=== PATIENT | female | born 1980 | race Caucasian/White ===

== ENCOUNTER → 2017-11-28 | Outpatient (CLI) | payer OTHER | END | disposition home or self-care (01) | LOC: RADMRIMAIN 20:08 | PROVIDERS: ATTEND Family Medicine | DX: Z53.9 Procedure and treatment not carried out, unspecified reason (principal) ==

== ENCOUNTER → 2017-12-02 | Outpatient (CLI) | payer OTHER ==
--- NOTE | 2017-12-02 16:38 | MR ---
EXAMINATION TYPE: MR lspine/sacrum wo/w con DATE OF EXAM: 12/02/2017 COMPARISON: 08/28/2012 HISTORY: Low back pain / Chronic back pain, incontinence CONTRAST: 0 mL intravenous Gadavist. TECHNIQUE: Multiplanar, multisequence images of the lumbar spine were acquired. FINDINGS: Cord terminates at the L2 level. Interval disc desiccation is present through the lumbar s pine. Disc heights appear preserved. L5-S1: No significant disc bulge or disc herniation. No spinal canal stenosis. No foraminal stenosi s. . L4-L5: No significant disc bulge or disc herniation. No spinal canal stenosis. No foraminal stenosi s. . L3-L4: Mild disc bulging is anterior thecal sac contact. No AP spinal canal stenosis present. Mild fa cet hypertrophy is present. Neural foramen are patent. No spinal canal stenosis. No foraminal steno sis. . L2-L3: No significant disc bulge or disc herniation. No spinal canal stenosis. No foraminal stenosi s. . L1-L2: Very minimal asymmetric bulging of the right paracentral region is anterior thecal sac contact . No stenosis is present. No foraminal stenosis. . T12-L1: No significant disc bulge or disc herniation. No spinal canal stenosis. No foraminal stenos is. Neural foramen are patent.. Images are performed through the sacrum. Sacral canal appears widely patent. Foramen appear patent. S acroiliac joints appear normal. Signal within the osseous structures appear normal. Portion of the co ccyx as visualized appears normal. Following contrast administration imaging is repeated through the lumbar spine. No suspicious enhance ment is evident. Imaging postcontrast through the sacrum and coccyx appears within normal limits. Por tion of the sacral plexus within the [id number] is unremarkable. IMPRESSION: 1. No significant disc herniation or disc bulge is evident. No spinal canal stenosis or neural forami nal stenosis. 2. Sacrum and coccyx likewise appear within normal limits.
== END | disposition home or self-care (01) ==
LOC: RADMRIMAIN 09:58
PROVIDERS: ATTEND Family Medicine
DX: M54.5 Low back pain (principal)
CPT/HCPCS: 72158; 72197; A9581

== ENCOUNTER 2018-10-01 14:35 | Emergency (ER) | payer OTHER ==
[2018-10-01 14:43] VITALS: RESP 18
[2018-10-01] MEDS ORDERED: levETIRAcetam 500 MG TAB PO STA (15:54)
[2018-10-01] MEDS ORDERED: METOCLOPRAMIDE 5 MG/ML 2 ML VIAL IVP STA (15:54)
[2018-10-01] MEDS ORDERED: MORPHINE SULFATE 4 MG/ML SYRINGE IV STA (15:54)
--- NOTE | 2018-10-01 16:01 | ED ---
General Adult HPI - General Chief complaint: Headache Stated complaint: HEADACHE Time Seen by Provider: 10/01/18 15:20 Source: patient, EMS, RN notes reviewed Mode of arrival: EMS Limitations: no limitations - History of Present Illness Initial comments: Patient is a pleasant 37-year-old female presenting to the emergency Department as a transfer from [facility]. Patient states she does have a well-known history of seizures. Patient has been seizure free for the past 6 years secondary to smoking marijuana. Patient states she was recently put on probation and had to discontinue marijuana one week ago. Patient states today she had 3 small seizures. Patient states is her absent seizures. Patient states the first to this lasted a few seconds and the last one lasted up to 3-4 minutes. Patient states she was alert and responsive the entire time. Patient states this was not a generalized tonic-clonic seizure. Patient does have history of both previously. Patient states no seizure medicine previously worked for her however that only when she really remembers was limited all. Patient does complain of generalized headache. Patient states she does chronically get headaches after having seizures and just wants something for pain. Patient was transferred from [facility] for desire of having neurology evaluation. - Related Data Home Medications Medication Instructions Recorded Confirmed ALPRAZolam [Xanax] 0.5 mg PO BID PRN 10/01/18 10/01/18 Escitalopram [Lexapro] 10 mg PO HS 10/01/18 10/01/18 Oxybutynin Chloride 5 mg PO BID 10/01/18 10/01/18 Previous Rx's Medication Instructions Recorded levETIRAcetam [Keppra] 500 mg PO Q12HR #14 tab 10/01/18 Allergies Allergy/AdvReac Type Severity Reaction Status Date / Time Penicillins Allergy Unknown Unknown Verified 10/01/18 15:22 barium iodide [Barium Iodide] Allergy Unknown Verified 10/01/18 15:22 cephalexin monohydrate Allergy Unknown Verified 10/01/18 15:22 [From Keflex] lidocaine Allergy Unknown Verified 10/01/18 15:22 Sulfa (Sulfonamide Allergy Unknown Verified 10/01/18 15:22 Antibiotics) tetanus toxoid, adsorbed Allergy Unknown Verified 10/01/18 15:22 Review of Systems ROS Statement: Those systems with pertinent positive or pertinent negative responses have been documented in the HPI. ROS Other: All systems not noted in ROS Statement are negative. Constitutional: Denies: fever Eyes: Denies: eye pain ENT: Denies: ear pain Respiratory: Denies: cough Cardiovascular: Denies: chest pain Endocrine: Denies: fatigue Gastrointestinal: Denies: abdominal pain Genitourinary: Denies: dysuria Musculoskeletal: Denies: as per HPI Skin: Denies: rash Neurological: Reports: headache Past Medical History Past Medical History: Diabetes Mellitus, Seizure Disorder Additional Past Medical History / Comment(s): MS, back pain DDD HERNIATED DISK History of Any Multi-Drug Resistant Organisms: None Reported Past Surgical History: Adenoidectomy, Section, Cholecystectomy, Orthopedic Surgery, Tonsillectomy, Tubal Ligation Past Psychological History: Depression Smoking Status: Current every day smoker Past Alcohol Use History: None Reported, Occasional Past Drug Use History: Marijuana General Exam Limitations: no limitations General appearance: alert, in no apparent distress Head exam: Present: atraumatic Eye exam: Present: normal appearance, PERRL, EOMI ENT exam: Present: normal oropharynx Neck exam: Present: normal inspection Respiratory exam: Present: normal lung sounds bilaterally Cardiovascular Exam: Present: regular rate, normal rhythm GI/Abdominal exam: Present: soft. Absent: tenderness Extremities exam: Present: normal inspection Neurological exam: Present: alert, CN II-XII intact. Absent: motor sensory deficit Expanded Neurological exam: Present: protecting the airway Speech: Present: fluid speech Cranial nerves: EOM's Intact: Normal, Facial Sensation: Normal Sensory exam: Upper Extremity Light Touch: Normal, Lower Extremity Light Touch: Normal Motor strength exam: RUE: 5, LUE: 5, RLE: 5, LLE: 5 Eye Response: (4) open spontaneously Motor Response: (6) obeys commands Verbal Response: (5) oriented Psychiatric exam: Present: normal affect, normal mood Skin exam: Present: normal color Course Vital Signs 10/01/18 14:37 Temperature 98.5 F Pulse Rate 64 Respiratory 18 Rate Blood Pressure 135/93 O2 Sat by Pulse 96 Oximetry Medical Decision Making - Medical Decision Making Case was discussed with Dr. Reid who did not have a specific opinion as far as admission or discharge however did agree to consult on the patient if she was admitted. He also agreed with Gianna if the patient did not agree to admission. Patient is offered admission several times and made aware that the reason she was transferred here was for admission however refuses this. Patient states she only is here to get medication for her headache. Patient states she arty has an appointment tomorrow with her primary care physician and will set up neurology evaluation again at that time. Patient refuses admission but is agreeable for follow-up. Disposition Clinical Impression: Absence seizure, Headache Disposition: HOME SELF-CARE Condition: Stable Instructions (If sedation given, give patient instructions): Acute Headache (ED), Recurrent Seizures in Adults (ED) Additional Instructions: Please follow-up tomorrow with your primary care physician as planned. Please schedule neurology evaluation as planned. Return for recurrent seizures, confusion, fevers, worsening symptoms or other concerns. Prescriptions: levETIRAcetam [Keppra] 500 mg PO Q12HR #14 tab Is patient prescribed a controlled substance at d/c from ED?: No Referrals: Osvaldo Bruner DO [Primary Care Provider] - 1-2 days Time of Disposition: 16:00
[2018-10-01 16:19] VITALS: BP 108/59; PULSE 70; TEMP 97.4
== END 2018-10-01 16:18 | disposition home or self-care (01) ==
LOC: EC 14:35
DX: G40.802 Other epilepsy, not intractable, without status epilepticus (principal); R51 Headache; F32.9 Major depressive disorder, single episode, unspecified; F17.200 Nicotine dependence, unspecified, uncomplicated; Z53.29 Procedure and treatment not carried out because of patient's decision for other reasons; Z79.899 Other long term (current) drug therapy; Z88.0 Allergy status to penicillin; Z88.8 Allergy status to other drugs, medicaments and biological substances; Z88.1 Allergy status to other antibiotic agents; Z88.4 Allergy status to anesthetic agent; Z88.2 Allergy status to sulfonamides; Z88.7 Allergy status to serum and vaccine
CPT/HCPCS: 99284; 96374; 96375; J2270; J2765

== ENCOUNTER 2019-06-30 23:21 | Emergency (ER) | payer OTHER ==
[2019-06-30 23:33] VITALS: BP 149/81; PULSE 82; RESP 20; TEMP 98.1
--- NOTE | 2019-06-30 23:44 | ED ---
Upper Extremity HPI - General Chief Complaint: Extremity Injury, Upper Stated Complaint: Fall, arm injury Time Seen by Provider: 06/30/19 23:36 Source: patient Mode of arrival: ambulatory Limitations: no limitations - History of Present Illness Initial Comments: Patient is a 38-year-old female presenting to emergency Department with complaints of left shoulder pain after falling 3 days ago. Patient states she slipped going downstairs and her arms went behind her trying to catch her fall when her left arm she caught the stairs and she's been having pain in her left shoulder ever since. Patient states she has tried to take Tylenol and Motrin for her discomfort however the pain has been increasing. Patient denies any previous injuries to her left shoulder. She states she is having some mild numbness and tingling into her left hand. She denies any her head. She has no other complaints from the fall. Upon arrival to the ER, her vital signs are stable. - Related Data Home Medications Medication Instructions Recorded Confirmed ALPRAZolam [Xanax] 0.5 mg PO BID PRN 10/01/18 10/01/18 Escitalopram [Lexapro] 10 mg PO HS 10/01/18 10/01/18 Oxybutynin Chloride 5 mg PO BID 10/01/18 10/01/18 Previous Rx's Medication Instructions Recorded levETIRAcetam [Keppra] 500 mg PO Q12HR #14 tab 10/01/18 Allergies Allergy/AdvReac Type Severity Reaction Status Date / Time Penicillins Allergy Unknown Unknown Verified 06/30/19 23:33 barium iodide [Barium Iodide] Allergy Unknown Verified 06/30/19 23:33 cephalexin monohydrate Allergy Unknown Verified 06/30/19 23:33 [From Keflex] lidocaine Allergy Unknown Verified 06/30/19 23:33 Sulfa (Sulfonamide Allergy Unknown Verified 06/30/19 23:33 Antibiotics) tetanus toxoid, adsorbed Allergy Unknown Verified 06/30/19 23:33 Review of Systems ROS Statement: Those systems with pertinent positive or pertinent negative responses have been documented in the HPI. ROS Other: All systems not noted in ROS Statement are negative. Past Medical History Past Medical History: Diabetes Mellitus, Seizure Disorder Additional Past Medical History / Comment(s): MS, back pain DDD HERNIATED DISK History of Any Multi-Drug Resistant Organisms: None Reported Past Surgical History: Adenoidectomy, Section, Cholecystectomy, Orthopedic Surgery, Tonsillectomy, Tubal Ligation Past Psychological History: Anxiety, Depression Smoking Status: Current every day smoker Past Alcohol Use History: None Reported Past Drug Use History: Marijuana General Exam - General Exam Comments Initial Comments: GENERAL: Well-appearing, well-nourished and in no acute distress. HEAD: Atraumatic, normocephalic. EYES: Pupils equal round and reactive to light, extraocular movements intact, sclera anicteric, conjunctiva are normal. ENT: Moist mucous membranes. NECK: Normal range of motion, supple without lymphadenopathy or JVD. LUNGS: Breath sounds clear to auscultation bilaterally and equal. No wheezes rales or rhonchi. HEART: Regular rate and rhythm without murmurs, rubs or gallops. ABDOMEN: Soft, nontender, normoactive bowel sounds. No guarding, no rebound. No masses appreciated. : Deferred EXTREMITIES: Tenderness to palpation of the posterior and anterior aspects of the left shoul debbie, over rotator cuff ligaments. Mild tenderness over the left trapezius. Patient has decreased range of motion secondary to pain. She is neurovascular intact. No pitting or edema. No clubbing or cyanosis. NEUROLOGICAL: Normal speech, normal gait. PSYCH: Normal mood, normal affect. SKIN: Warm, Dry, normal turgor, no rashes or lesions noted. Limitations: no limitations Course Vital Signs 06/30/19 23:31 Temperature 98.1 F Pulse Rate 82 Respiratory 20 Rate Blood Pressure 149/81 O2 Sat by Pulse 100 Oximetry Medical Decision Making - Medical Decision Making Patient is a 38-year-old female presenting for left shoulder pain 3 days after a fall. She denies any other injuries in this fall. X-rays of the left shoulder revealed no acute fractures or dislocations. I discussed with patient this is most likely a rotator cuff injury. She was given a sling for comfort. She will continue with Tylenol and Motrin as well as ice at home. She will do gentle range of motion and will follow up with orthopedics. Patient is agr eement this plan of care. She is requesting pain medicine before she goes. Patient was given Toradol before discharge. Return parameters were discussed with the patient she verbalized understanding. Disposition Clinical Impression: Strain of left shoulder, Left shoulder pain Disposition: HOME SELF-CARE Condition: Stable Instructions (If sedation given, give patient instructions): Shoulder Sprain (ED) Additional Instructions: Please return to the Emergency Department if symptoms worsen or any other concerns. Follow-up with orthopedics as discussed. May continue with Tylenol or Motrin for discomfort. Is patient prescribed a controlled substance at d/c from ED?: No Referrals: Dorothy Lopez MD [Primary Care Provider] - 1-2 days Zak Ramirez MD [Medical Doctor] - 1-2 days
--- NOTE | 2019-06-30 23:59 | XR ---
EXAMINATION TYPE: XR shoulder complete LT DATE OF EXAM: 06/30/2019 COMPARISON: NONE HISTORY: Pain TECHNIQUE: Shoulder examined in 3 FINDINGS: The humeral head articulates with the glenoid. The acromio-clavicular junction is normal. No acute fractures or dislocations are evident. A follow up study can be performed 7-10 days from acute trauma for continued pain. IMPRESSION: 1. Normal three-view left Shoulder
[2019-07-01] MEDS ORDERED: KETOROLAC 60 MG/2 ML VIAL IM STA (00:18)
== END 2019-07-01 00:57 | disposition home or self-care (01) ==
LOC: EC 23:21
DX: S46.912A Strain of unspecified muscle, fascia and tendon at shoulder and upper arm level, left arm, initial encounter (principal); E11.9 Type 2 diabetes mellitus without complications; F41.9 Anxiety disorder, unspecified; F32.9 Major depressive disorder, single episode, unspecified; F17.200 Nicotine dependence, unspecified, uncomplicated; Z79.899 Other long term (current) drug therapy; Z88.0 Allergy status to penicillin; Z88.8 Allergy status to other drugs, medicaments and biological substances; Z88.1 Allergy status to other antibiotic agents; Z88.4 Allergy status to anesthetic agent; Z88.2 Allergy status to sulfonamides; Z88.7 Allergy status to serum and vaccine; W10.9XXA Fall (on) (from) unspecified stairs and steps, initial encounter
CPT/HCPCS: 73030; 99283; 96372; J1885

== ENCOUNTER 2019-11-10 21:40 | Emergency (ER) | payer OTHER ==
--- NOTE | 2019-11-10 22:00 | ED ---
SOB HPI - General Chief Complaint: Shortness of Breath Stated Complaint: SOB Time Seen by Provider: 11/10/19 21:55 Source: patient Mode of arrival: wheelchair Limitations: no limitations - History of Present Illness Initial Comments: This patient is a 39-year-old woman who presents to be evaluated for constellation of symptoms that all began between 2-3 weeks ago. She states that the onset was of some congestion followed by a nonproductive cough. Patient has a little bit of dyspnea with exertion. She also has been having some body aches and headache. In addition patient has had some fever that has been intermittent. MD Complaint: shortness of breath, cough -: week(s) Consistency: constant Improves With: nothing Worsens With: nothing Associated Symptoms: fever, cough, other (Headache) Treatments Prior to Arrival: none - Related Data Home Medications Medication Instructions Recorded Confirmed Acetaminophen Tab [Tylenol Tab] 1,000 mg PO Q6H PRN 11/10/19 11/10/19 Previous Rx's Medication Instructions Recorded Albuterol Inhaler [Ventolin Hfa 2 puff INHALATION Q4HR PRN #1 11/11/19 Inhaler] inhaler predniSONE [Deltasone] 20 mg PO BID #8 tab 11/11/19 Allergies Allergy/AdvReac Type Severity Reaction Status Date / Time Penicillins Allergy Unknown Dyspnea Verified 11/10/19 23:36 cephalexin monohydrate Allergy Unknown Verified 11/10/19 23:36 [From Keflex] Childhood lidocaine Allergy Rash/Hives/Shortness Verified 11/10/19 23:36 of Breath Sulfa (Sulfonamide Allergy Unknown Verified 11/10/19 23:36 Antibiotics) Childhood tetanus toxoid, adsorbed Allergy Unknown Verified 11/10/19 23:36 barium iodide [Barium Iodide] AdvReac Nausea & Verified 11/10/19 23:36 Vomiting Review of Systems ROS Statement: Those systems with pertinent positive or pertinent negative responses have been documented in the HPI. ROS Other: All systems not noted in ROS Statement are negative. Constitutional: Reports: fever. Denies: weakness Eyes: Denies: vision change ENT: Reports: congestion Respiratory: Reports: cough, dyspnea. Denies: wheezes, hemoptysis Cardiovascular: Reports: chest pain, dyspnea on exertion. Denies: palpitations, orthopnea, edema, syncope Gastrointestinal: Denies: abdominal pain, nausea, vomiting Genitourinary: Denies: dysuria, hematuria Musculoskeletal: Reports: myalgia. Denies: back pain Skin: Denies: rash Neurological: Reports: headache. Denies: weakness, numbness, confusion Past Medical History Past Medical History: Diabetes Mellitus, Seizure Disorder Additional Past Medical History / Comment(s): MS, back pain DDD HERNIATED DISK History of Any Multi-Drug Resistant Organisms: None Reported Past Surgical History: Adenoidectomy, Section, Cholecystectomy, Or thopedic Surgery, Tonsillectomy, Tubal Ligation Past Psychological History: Anxiety, Depression Smoking Status: Current every day smoker Past Alcohol Use History: None Reported Past Drug Use History: Marijuana General Exam Limitations: no limitations General appearance: alert, in no apparent distress Head exam: Present: atraumatic, normocephalic Eye exam: Present: normal appearance, PERRL, EOMI. Absent: scleral icterus, conjunctival injection ENT exam: Present: normal oropharynx Neck exam: Present: full ROM. Absent: tenderness, meningismus Respiratory exam: Present: wheezes. Absent: respiratory distress, rales, rhonchi, stridor Cardiovascular Exam: Present: regular rate, normal rhythm, normal heart sounds. Absent: systolic murmur, diastolic murmur, rubs, gallop GI/Abdominal exam: Present: soft. Absent: distended, tenderness, guarding, rebound, rigid, mass Extremities exam: Present: normal inspection, normal capillary refill. Absent: pedal edema, calf tenderness Back exam: Present: normal inspection. Absent: CVA tenderness (R), CVA tenderness (L) Neurological exam: Present: alert Skin exam: Present: warm, dry, intact, normal color. Absent: rash Course Vital Signs 11/10/19 11/10/19 21:41 23:24 Temperature 97.9 F 97.8 F Pulse Rate 93 74 Respiratory 24 20 Rate Blood Pressure 123/79 129/83 O2 Sat by Pulse 98 99 Oximetry Medical Decision Making - Lab Data Result diagrams: 11/10/19 22:34 11/10/19 22:34 Lab Results 11/10/19 11/10/19 11/10/19 Range/Units 22:34 22:34 22:34 WBC 5.5 (3.8-10.6) k/uL RBC 4.59 (3.80-5.40) m/uL Hgb 13.9 (11.4-16.0) gm/dL Hct 41.6 (34.0-46.0) % MCV 90.4 (80.0-100.0) fL MCH 30.2 (25.0-35.0) pg MCHC 33.4 (31.0-37.0) g/dL RDW 13.1 (11.5-15.5) % Plt Count 230 (150-450) k/uL Neutrophils % 64 % Lymphocytes % 25 % Monocytes % 6 % Eosinophils % 2 % Basophils % 1 % Neutrophils # 3.5 (1.3-7.7) k/uL Lymphocytes # 1.4 (1.0-4.8) k/uL Monocytes # 0.3 (0-1.0) k/uL Eosinophils # 0.1 (0-0.7) k/uL Basophils # 0.0 (0-0.2) k/uL PT 9.7 (9.0-12.0) sec INR 0.9 (<1.2) APTT 25.6 (22.0-30.0) sec D-Dimer 0.38 (<0.60) mg/L FEU Sodium 135 L (137-145) mmol/L Potassium 3.8 (3.5-5.1) mmol/L Chloride 104 (98-107) mmol/L Carbon Dioxide 22 (22-30) mmol/L Anion Gap 9 mmol/L BUN 10 (7-17) mg/dL Creatinine 0.63 (0.52-1.04) mg/dL Est GFR (CKD-EPI)AfAm >90 (>60 ml/min/1.73 sqM) Est GFR (CKD-EPI)NonAf >90 (>60 ml/min/1.73 sqM) Glucose 120 H (74-99) mg/dL Calcium 9.0 (8.4-10.2) mg/dL Total Bilirubin 0.3 (0.2-1.3) mg/dL AST 29 (14-36) U/L ALT 21 (4-34) U/L Alkaline Phosphatase 65 (38-126) U/L Troponin I (0.000-0.034) ng/mL NT-Pro-B Natriuret Pep pg/mL Total Protein 6.7 (6.3-8.2) g/dL Albumin 4.1 (3.5-5.0) g/dL 11/10/19 11/10/19 Range/Units 22:34 22:34 WBC (3.8-10.6) k/uL RBC (3.80-5.40) m/uL Hgb (11.4-16.0) gm/dL Hct (34.0-46.0) % MCV (80.0-100.0) fL MCH (25.0-35.0) pg MCHC (31.0-37.0) g/dL RDW (11.5-15.5) % Plt Count (150-450) k/uL Neutrophils % % Lymphocytes % % Monocytes % % Eosinophils % % Basophils % % Neutrophils # (1.3-7.7) k/uL Lymphocytes # (1.0-4.8) k/uL Monocytes # (0-1.0) k/uL Eosinophils # (0-0.7) k/uL Basophils # (0-0.2) k/uL PT (9.0-12.0) sec INR (<1.2) APTT (22.0-30.0) sec D-Dimer (<0.60) mg/L FEU Sodium (137-145) mmol/L Potassium (3.5-5.1) mmol/L Chloride (98-107) mmol/L Carbon Dioxide (22-30) mmol/L Anion Gap mmol/L BUN (7-17) mg/dL Creatinine (0.52-1.04) mg/dL Est GFR (CKD-EPI)AfAm (>60 ml/min/1.73 sqM) Est GFR (CKD-EPI)NonAf (>60 ml/min/1.73 sqM) Glucose (74-99) mg/dL Calcium (8.4-10.2) mg/dL Total Bilirubin (0.2-1.3) mg/dL AST (14-36) U/L ALT (4-34) U/L Alkaline Phosphatase (38-126) U/L Troponin I <0.012 (0.000-0.034) ng/mL NT-Pro-B Natriuret Pep 411 pg/mL Total Protein (6.3-8.2) g/dL Albumin (3.5-5.0) g/dL - EKG Data -: EKG Interpreted by Me EKG shows normal: sinus rhythm, axis (Normal), intervals (Normal), QRS complexes (Normal), ST-T waves (Normal) Rate: normal (Rate 95 bpm) Disposition Clinical Impression: Viral syndrome, Bronchitis Disposition: HOME SELF-CARE Condition: Good Instructions (If sedation given, give patient instructions): Acute Bronchitis (ED) Prescriptions: predniSONE [Deltasone] 20 mg PO BID #8 tab Albuterol Inhaler [Ventolin Hfa Inhaler] 2 puff INHALATION Q4HR PRN #1 inhaler PRN Reason: Wheezing Is patient prescribed a controlled substance at d/c from ED?: No Referrals: None,Stated [Primary Care Provider] - 1-2 days
[2019-11-10] MEDS ORDERED: IBUPROFEN 400 MG TAB PO STA (22:33)
--- NOTE | 2019-11-10 22:49 | XR ---
EXAMINATION TYPE: XR chest 2V DATE OF EXAM: 11/10/2019 COMPARISON: 08/23/2015 HISTORY: Chest pain TECHNIQUE: FINDINGS: Heart and mediastinum are normal. Lungs are clear. There is slight blunting of left costoph renic angle. Bony thorax appears normal. IMPRESSION: There is mild pleural scarring at the lateral left lung base unchanged. No acute lung dis ease. Normal heart.
[2019-11-10 22:51] LABS: Basophils % (A) 1 %; Eosinophils # (A) 0.1 k/uL (0-0.7); Eosinophils % (A) 2 %; HCT 41.6 % (34.0-46.0); HGB 13.9 gm/dL (11.4-16.0); Lymphocytes # (A) 1.4 k/uL (1.0-4.8); Lymphocytes % (A) 25 %; MCH 30.2 pg (25.0-35.0); MCHC 33.4 g/dL (31.0-37.0); MCV 90.4 fL (80.0-100.0); Mean Platelet Volume 7.5; Monocytes # (A) 0.3 k/uL (0-1.0); Monocytes % (A) 6 %; Neutrophils # (A) 3.5 k/uL (1.3-7.7); Neutrophils % (A) 64 %; Platelet Count 230 k/uL (150-450); RBC 4.59 m/uL (3.80-5.40); RDW 13.1 % (11.5-15.5); WBC 5.5 k/uL (3.8-10.6)
[2019-11-10 23:05] LABS: ALT 21 U/L (4-34); AST 29 U/L (14-36); African American GFR (CKD) >90 (>60 ml/min/1.73 sqM); Albumin 4.1 g/dL (3.5-5.0); Alkaline Phosphatase 65 U/L (38-126); Anion Gap 9 mmol/L; Blood Urea Nitrogen 10 mg/dL (7-17); Carbon Dioxide 22 mmol/L (22-30); Chloride 104 mmol/L (98-107); Glucose 120 mg/dL (74-99); Non-African American GFR(CKD) >90 (>60 ml/min/1.73 sqM); Potassium 3.8 mmol/L (3.5-5.1); Sodium 135 mmol/L (137-145); Total Bilirubin 0.3 mg/dL (0.2-1.3); Total Protein 6.7 g/dL (6.3-8.2)
[2019-11-10 23:50] LABS: D-Dimer 0.38 mg/L FEU (<0.60); INR 0.9 (<1.2); Partial Thromboplastin Time 25.6 sec (22.0-30.0); Prothrombin Time 9.7 sec (9.0-12.0)
[2019-11-11] MEDS ORDERED: predniSONE 20 MG TAB PO STA (00:40)
[2019-11-11] MEDS ORDERED: ACET/COD 300 MG/30 MG STARTER PACK 6 TAB BTL PO STA (00:47)
[2019-11-11 01:18] VITALS: BP 115/84; PULSE 75; RESP 19; TEMP 97.6
== END 2019-11-11 01:19 | disposition home or self-care (01) ==
LOC: EC 21:40
DX: J40 Bronchitis, not specified as acute or chronic (principal); B34.9 Viral infection, unspecified; M54.9 Dorsalgia, unspecified; F17.200 Nicotine dependence, unspecified, uncomplicated; Z88.0 Allergy status to penicillin; Z88.2 Allergy status to sulfonamides; Z88.1 Allergy status to other antibiotic agents; Z88.4 Allergy status to anesthetic agent; Z91.09 Other allergy status, other than to drugs and biological substances; Z20.828 Contact with and (suspected) exposure to other viral communicable diseases
CPT/HCPCS: 36415; 93005; 85379; 83880; 80053; 84484; 85025; 85610; 85730; 71046; 99285; U0003; J7512

== ENCOUNTER 2020-03-22 12:30 | Emergency (ER) | payer OTHER ==
[2020-03-22 12:34] VITALS: TEMP 98
[2020-03-22 13:24] LABS: Basophils % (A) 0 %; Eosinophils # (A) 0.2 k/uL (0-0.7); Eosinophils % (A) 3 %; HCT 43.1 % (34.0-46.0); HGB 14.2 gm/dL (11.4-16.0); Lymphocytes # (A) 1.3 k/uL (1.0-4.8); Lymphocytes % (A) 22 %; MCH 30.4 pg (25.0-35.0); MCV 92.1 fL (80.0-100.0); Mean Platelet Volume 7.4; Monocytes # (A) 0.3 k/uL (0-1.0); Monocytes % (A) 5 %; Neutrophils # (A) 3.9 k/uL (1.3-7.7); Neutrophils % (A) 68 %; Platelet Count 228 k/uL (150-450); RBC 4.68 m/uL (3.80-5.40); RDW 13.1 % (11.5-15.5); WBC 5.8 k/uL (3.8-10.6)
--- NOTE | 2020-03-22 13:28 | XR ---
EXAMINATION TYPE: XR chest 1V portable DATE OF EXAM: 03/22/2020 COMPARISON: Chest x-ray 11/10/2019 HISTORY: Shortness of breath and chest pain, suspected Covid 19 pneumonia TECHNIQUE: Single frontal view of the chest is obtained. FINDINGS: There is no focal air space opacity, pleural effusion, or pneumothorax seen. The cardiac silhouette size is within normal limits. Lateralization of the left hemidiaphragm is stable. There is eventration of the right hemidiaphragm. The osseous structures are intact. IMPRESSION: No acute process.
[2020-03-22 13:38] VITALS: RESP 18
[2020-03-22 13:43] LABS: Potassium 4.2 mmol/L (3.5-5.1)
[2020-03-22 13:46] LABS: ALT 16 U/L (4-34); AST 25 U/L (14-36); African American GFR (CKD) >90 (>60 ml/min/1.73 sqM); Albumin 4.3 g/dL (3.5-5.0); Alkaline Phosphatase 72 U/L (38-126); Anion Gap 8 mmol/L; Blood Urea Nitrogen 10 mg/dL (7-17); C Reactive Protein <5.0 mg/L (<10.0); Calcium 9.3 mg/dL (8.4-10.2); Carbon Dioxide 21 mmol/L (22-30); Chloride 106 mmol/L (98-107); Glucose 147 mg/dL (74-99); LDH 376 U/L (313-618); Non-African American GFR(CKD) >90 (>60 ml/min/1.73 sqM); Sodium 135 mmol/L (137-145); Total Bilirubin 0.4 mg/dL (0.2-1.3); Total Protein 7.3 g/dL (6.3-8.2)
[2020-03-22] MEDS ORDERED: SODIUM CHLORIDE 0.9% 500 ML 500 ML IV ONE (14:01)
--- NOTE | 2020-03-22 14:01 | ED ---
SOB HPI - General Source: patient Mode of arrival: ambulatory Limitations: no limitations <Isabela Mendiola - Last Filed: 03/22/20 14:09> <Torrie Rodriguez - Last Filed: 03/22/20 21:11> - General Chief Complaint: Shortness of Breath Stated Complaint: SOB Time Seen by Provider: 03/22/20 12:35 - History of Present Illness Initial Comments: 39-year-old female with DM and MS presents today for chief complaint of fevers cough congestion at times shortness of breath and chest discomfort. Patient states that she was recently exposed to Covid 19 she states she developed fevers on a [place] and has been having shortness of breath and at times discomfort in the chest with coughing. Patient denies current shortness of breath or chest discomfort. She denies pressure jaw pain or arm paiin.. Patient does endorse some nausea. She denies vomiting diarrhea. Patient denies leg swelling, hemoptysis. Patient states she is concerned she is and was told to come to the emergency department by her primary care provider for evaluation. Patient does not appear toxic on arrival she is saturating well on room air. In no respiratory distress. (Isabela Mendiola) - Related Data Home Medications Medication Instructions Recorded Confirmed Albuterol Inhaler [Ventolin Hfa 2 puff INHALATION RT-Q6H PRN 03/22/20 03/22/20 Inhaler] Escitalopram [Lexapro] 10 mg PO HS 03/22/20 03/22/20 Fluticasone/Salmeterol [Advair 1 puff INHALATION RT-HS 03/22/20 03/22/20 250-50 Diskus] Oxybutynin Chloride [Ditropan] 5 mg PO BID 03/22/20 03/22/20 Allergies Allergy/AdvReac Type Severity Reaction Status Date / Time Penicillins Allergy Unknown Dyspnea Verified 03/22/20 13:11 cephalexin monohydrate Allergy Unknown Verified 03/22/20 13:11 [From Keflex] Childhood lidocaine Allergy Rash/Hives/Shortness Verified 03/22/20 13:11 of Breath Sulfa (Sulfonamide Allergy Unknown Verified 03/22/20 13:11 Antibiotics) Childhood tetanus toxoid, adsorbed Allergy Unknown Verified 03/22/20 13:11 tomato Allergy Unknown Verified 03/22/20 13:11 barium iodide [Barium Iodide] AdvReac Nausea & Verified 03/22/20 13:11 Vomiting Review of Systems ROS Other: All systems not noted in ROS Statement are negative. <Isabela Mendiola - Last Filed: 03/22/20 14:09> ROS Other: All systems not noted in ROS Statement are negative. <JenniferTorrie Reginaldo - Last Filed: 03/22/20 21:11> ROS Statement: Those systems with pertinent positive or pertinent negative responses have been documented in the HPI. Past Medical History Past Medical History: Diabetes Mellitus, Seizure Disorder Additional Past Medical History / Comment(s): MS, back pain DDD HERNIATED DISK History of Any Multi-Drug Resistant Organisms: None Reported Past Surgical History: Adenoidectomy, Section, Cholecystectomy, Orthopedic Surgery, Tonsillectomy, Tubal Ligation Past Psychological History: Anxiety, Depression Smoking Status: Current every day smoker Past Alcohol Use History: None Reported Past Drug Use History: Marijuana <Isabela Mendiola - Last Filed: 03/22/20 14:09> General Exam Limitations: no limitations <Isabela Mendiola - Last Filed: 03/22/20 14:09> - General Exam Comments Initial Comments: General: The patient is awake and alert, in no distress Eye: Pupils are equal, round and reactive to light, extra-ocular movements are intact. No nystagmus. There is normal conjunctiva bilaterally. No signs of icterus. Ears, nose, mouth and throat: There are moist mucous membranes and no oral lesions. Neck: The neck is supple, there is no tenderness or JVD. Cardiovascular: There is a regular rate and rhythm. No murmur, rub or gallop is appreciated. Respiratory: Lungs are clear to auscultation, respirations are non-labored, breath sounds are equal. No wheezes, stridor, rales, or rhonchi. Dry cough Musculoskeletal: Normal ROM, no tenderness. Strength 5/5. Sensation intact. Radial pulses equal bilaterally 2+. Neurological: A&O x 3. CN II-XII intact, There are no obvious motor or sensory deficits. Coordination appears grossly intact. Speech is normal. Skin: Skin is warm and dry and no rashes or lesions are noted. No LE edema. No calf tenderness. Psychiatric: Cooperative, appropriate mood & affect, normal judgment. (Isabela Mendiola) Course <Isabela Mendiola - Last Filed: 03/22/20 14:09> <Torrie Rodriguez - Last Filed: 03/22/20 21:11> Vital Signs 03/22/20 03/22/20 03/22/20 12:31 13:36 15:51 Temperature 98.0 F Pulse Rate 111 H 88 82 Respiratory 22 18 18 Rate Blood Pressure 145/99 133/88 125/88 O2 Sat by Pulse 100 100 100 Oximetry - Reevaluation(s) Reevaluation #1: signed care out to Torrie rodriguez PA-C pending troponin and D-dimer and ultimate disposition. 03/22/20 14:09 (Isabela Mendiola) Patient was signed out to nc and by Isabela Mendiola PA-C at 14:00. She was reassessed, vital signs remained stable. Awaiting troponin and d-dimer results. 03/22/20 15:00. (Torrie Rodriguez) Medical Decision Making - Lab Data Result diagrams: 03/22/20 13:04 03/22/20 13:04 <Isabela Mendiola - Last Filed: 03/22/20 14:09> - Lab Data Result diagrams: 03/22/20 13:04 03/22/20 13:04 <Torrie Rodriguez - Last Filed: 03/22/20 21:11> - Medical Decision Making Patient is a 39-year-old female here with recent cold exposure presenting with shortness of breath. Patient was slightly tachycardia upon arrival, afebrile. Her exam showed no acute findings, EKG was normal. Chest x-ray also is normal. Labs shows normal white count, d-dimer is normal, lactic acid was slightly elevated at 2.4, most likely from dehydration. CRP is less than 5, troponin is normal, rapid Covid is not detected. Patient was given fluids for dehydration, I did discuss these findings with the patient. Patient's vital signs remained stable. I discussed with her this is most likely viral in nature. Recommend following up with her regular doctor. She is in agreement with this plan of care and is stable for discharge. Return parameters were discussed with the patient and she verbalized understanding. Case discussed with Dr. Chang. (Torrie Rodriguez) - Lab Data Lab Results 03/22/20 03/22/20 03/22/20 Range/Units 13:04 13:04 13:04 WBC 5.8 (3.8-10.6) k/uL RBC 4.68 (3.80-5.40) m/uL Hgb 14.2 (11.4-16.0) gm/dL Hct 43.1 (34.0-46.0) % MCV 92.1 (80.0-100.0) fL MCH 30.4 (25.0-35.0) pg MCHC 33.0 (31.0-37.0) g/dL RDW 13.1 (11.5-15.5) % Plt Count 228 (150-450) k/uL MPV 7.4 Neutrophils % 68 % Lymphocytes % 22 % Monocytes % 5 % Eosinophils % 3 % Basophils % 0 % Neutrophils # 3.9 (1.3-7.7) k/uL Lymphocytes # 1.3 (1.0-4.8) k/uL Monocytes # 0.3 (0-1.0) k/uL Eosinophils # 0.2 (0-0.7) k/uL Basophils # 0.0 (0-0.2) k/uL PT 9.7 (9.0-12.0) sec INR 0.9 (<1.2) APTT 24.1 (22.0-30.0) sec D-Dimer 0.25 (<0.60) mg/L FEU Sodium 135 L (137-145) mmol/L Potassium 4.2 (3.5-5.1) mmol/L Chloride 106 (98-107) mmol/L Carbon Dioxide 21 L (22-30) mmol/L Anion Gap 8 mmol/L BUN 10 (7-17) mg/dL Creatinine 0.60 (0.52-1.04) mg/dL Est GFR (CKD-EPI)AfAm >90 (>60 ml/min/1.73 sqM) Est GFR (CKD-EPI)NonAf >90 (>60 ml/min/1.73 sqM) Glucose 147 H (74-99) mg/dL Lactic Ac Sepsis Rflx Plasma Lactic Acid Jerry (0.7-2.0) mmol/L Calcium 9.3 (8.4-10.2) mg/dL Magnesium 2.0 (1.6-2.3) mg/dL Ferritin 39.2 (10.0-291.0) ng/mL Total Bilirubin 0.4 (0.2-1.3) mg/dL AST 25 (14-36) U/L ALT 16 (4-34) U/L Alkaline Phosphatase 72 (38-126) U/L Lactate Dehydrogenase 376 (313-618) U/L Troponin I (0.000-0.034) ng/mL C-Reactive Protein <5.0 (<10.0) mg/L Total Protein 7.3 (6.3-8.2) g/dL Albumin 4.3 (3.5-5.0) g/dL Influenza Type A (PCR) (Not Detectd) Influenza Type B (PCR) (Not Detectd) RSV (PCR) (Not Detectd) SARS-CoV-2 (PCR) (Not Detectd) 03/22/20 03/22/20 03/22/20 Range/Units 13:04 13:04 14:00 WBC (3.8-10.6) k/uL RBC (3.80-5.40) m/uL Hgb (11.4-16.0) gm/dL Hct (34.0-46.0) % MCV (80.0-100.0) fL MCH (25.0-35.0) pg MCHC (31.0-37.0) g/dL RDW (11.5-15.5) % Plt Count (150-450) k/uL MPV Neutrophils % % Lymphocytes % % Monocytes % % Eosinophils % % Basophils % % Neutrophils # (1.3-7.7) k/uL Lymphocytes # (1.0-4.8) k/uL Monocytes # (0-1.0) k/uL Eosinophils # (0-0.7) k/uL Basophils # (0-0.2) k/uL PT (9.0-12.0) sec INR (<1.2) APTT (22.0-30.0) sec D-Dimer (<0.60) mg/L FEU Sodium (137-145) mmol/L Potassium (3.5-5.1) mmol/L Chloride (98-107) mmol/L Carbon Dioxide (22-30) mmol/L Anion Gap mmol/L BUN (7-17) mg/dL Creatinine (0.52-1.04) mg/dL Est GFR (CKD-EPI)AfAm (>60 ml/min/1.73 sqM) Est GFR (CKD-EPI)NonAf (>60 ml/min/1.73 sqM) Glucose (74-99) mg/dL Lactic Ac Sepsis Rflx Y Plasma Lactic Acid Jerry 2.4 H* (0.7-2.0) mmol/L Calcium (8.4-10.2) mg/dL Magnesium (1.6-2.3) mg/dL Ferritin (10.0-291.0) ng/mL Total Bilirubin (0.2-1.3) mg/dL AST (14-36) U/L ALT (4-34) U/L Alkaline Phosphatase (38-126) U/L Lactate Dehydrogenase (313-618) U/L Troponin I (0.000-0.034) ng/mL C-Reactive Protein (<10.0) mg/L Total Protein (6.3-8.2) g/dL Albumin (3.5-5.0) g/dL Influenza Type A (PCR) Not Detected (Not Detectd) Influenza Type B (PCR) Not Detected (Not Detectd) RSV (PCR) Not Detected (Not Detectd) SARS-CoV-2 (PCR) Not Detected (Not Detectd) 03/22/20 Range/Units 14:41 WBC (3.8-10.6) k/uL RBC (3.80-5.40) m/uL Hgb (11.4-16.0) gm/dL Hct (34.0-46.0) % MCV (80.0-100.0) fL MCH (25.0-35.0) pg MCHC (31.0-37.0) g/dL RDW (11.5-15.5) % Plt Count (150-450) k/uL MPV Neutrophils % % Lymphocytes % % Monocytes % % Eosinophils % % Basophils % % Neutrophils # (1.3-7.7) k/uL Lymphocytes # (1.0-4.8) k/uL Monocytes # (0-1.0) k/uL Eosinophils # (0-0.7) k/uL Basophils # (0-0.2) k/uL PT (9.0-12.0) sec INR (<1.2) APTT (22.0-30.0) sec D-Dimer (<0.60) mg/L FEU Sodium (137-145) mmol/L Potassium (3.5-5.1) mmol/L Chloride (98-107) mmol/L Carbon Dioxide (22-30) mmol/L Anion Gap mmol/L BUN (7-17) mg/dL Creatinine (0.52-1.04) mg/dL Est GFR (CKD-EPI)AfAm (>60 ml/min/1.73 sqM) Est GFR (CKD-EPI)NonAf (>60 ml/min/1.73 sqM) Glucose (74-99) mg/dL Lactic Ac Sepsis Rflx Plasma Lactic Acid Jerry (0.7-2.0) mmol/L Calcium (8.4-10.2) mg/dL Magnesium (1.6-2.3) mg/dL Ferritin (10.0-291.0) ng/mL Total Bilirubin (0.2-1.3) mg/dL AST (14-36) U/L ALT (4-34) U/L Alkaline Phosphatase (38-126) U/L Lactate Dehydrogenase (313-618) U/L Troponin I <0.012 (0.000-0.034) ng/mL C-Reactive Protein (<10.0) mg/L Total Protein (6.3-8.2) g/dL Albumin (3.5-5.0) g/dL Influenza Type A (PCR) (Not Detectd) Influenza Type B (PCR) (Not Detectd) RSV (PCR) (Not Detectd) SARS-CoV-2 (PCR) (Not Detectd) - EKG Data EKG Comments: Normal sinus rhythm, normal ECG. No signs of acute process. Ventricular rate 80, OR interval 118, QTC 372. (Torrie Rodriguez) Disposition <Isabela Mendiola - Last Filed: 03/22/20 14:09> Is patient prescribed a controlled substance at d/c from ED?: No Time of Disposition: 15:58 <Torrie Rodriguez - Last Filed: 03/22/20 21:11> Clinical Impression: Shortness of breath, Viral illness Disposition: HOME SELF-CARE Condition: Stable Instructions (If sedation given, give patient instructions): Viral Syndrome (ED) Additional Instructions: Please return to the Emergency Department if symptoms worsen or any other concerns. Workup today including Covid swab were negative. Mild dehydration. Recommended continuing to increase water intake. Follow-up with your regular PCP. Referrals: Melchor Macdonald MD [Primary Care Provider] - 1-2 days
[2020-03-22 14:22] LABS: D-Dimer 0.25 mg/L FEU (<0.60); INR 0.9 (<1.2); Partial Thromboplastin Time 24.1 sec (22.0-30.0); Prothrombin Time 9.7 sec (9.0-12.0)
[2020-03-22 15:52] VITALS: BP 125/88; PULSE 82
[2020-03-22 20:22] LABS: Ferritin 39.2 ng/mL (10.0-291.0)
== END 2020-03-22 16:03 | disposition home or self-care (01) ==
LOC: EC 12:30
DX: B34.9 Viral infection, unspecified (principal); R74.02 Elevation of levels of lactic acid dehydrogenase [LDH]; F17.200 Nicotine dependence, unspecified, uncomplicated; F41.9 Anxiety disorder, unspecified; F32.9 Major depressive disorder, single episode, unspecified; G40.909 Epilepsy, unspecified, not intractable, without status epilepticus; G35 Multiple sclerosis; Z79.899 Other long term (current) drug therapy; Z20.828 Contact with and (suspected) exposure to other viral communicable diseases; Z88.8 Allergy status to other drugs, medicaments and biological substances; Z88.7 Allergy status to serum and vaccine; Z88.2 Allergy status to sulfonamides; Z88.1 Allergy status to other antibiotic agents; Z88.0 Allergy status to penicillin
CPT/HCPCS: 36415; 71045; 80053; 82728; 83605; 83615; 83735; 84145; 84484; 85025; 85379; 85610; 85730; 86140; 87636; 93005; 96360; 96361; 99285

== ENCOUNTER 2020-12-13 21:47 | Emergency (ER) | payer OTHER ==
[2020-12-13 22:23] VITALS: TEMP 98
[2020-12-13] MEDS ORDERED: SODIUM CHLORIDE 0.9% 500 ML 500 ML IV STA (22:50)
[2020-12-13] MEDS ORDERED: MORPHINE SULFATE 4 MG/ML SYRINGE IV STA (22:50)
--- NOTE | 2020-12-13 22:53 | ED ---
Abdominal Pain HPI - General Chief Complaint: Vaginal Bleeding Stated Complaint: Vaginal Bleeding Time Seen by Provider: 12/13/20 22:38 Source: patient Mode of arrival: ambulatory Limitations: no limitations - History of Present Illness MD Complaint: abdominal pain -: days(s) Location: RLQ, suprapubic Radiation: none Migration to: no migration Severity: severe Quality: cramping, aching Consistency: constant Improves With: nothing Worsens With: nothing - Related Data LMP (females 10-50): last week Patient : No Home Medications Medication Instructions Recorded Confirmed Oxybutynin Chloride [Ditropan] 5 mg PO BID 03/22/20 12/13/20 Escitalopram [Lexapro] 20 mg PO DAILY 12/13/20 12/13/20 Meclizine HCl 25 mg PO TID PRN 12/13/20 12/13/20 Previous Rx's Medication Instructions Recorded Naproxen 250 mg PO BID #20 tablet 12/14/20 Allergies Allergy/AdvReac Type Severity Reaction Status Date / Time Penicillins Allergy Unknown Dyspnea Verified 12/13/20 23:42 cephalexin monohydrate Allergy Unknown Verified 12/13/20 23:42 [From Keflex] Childhood lidocaine Allergy Rash/Hives/Shortness Verified 12/13/20 23:42 of Breath Sulfa (Sulfonamide Allergy Unknown Verified 12/13/20 23:42 Antibiotics) Childhood tetanus toxoid, adsorbed Allergy Unknown Verified 12/13/20 23:42 tomato Allergy Unknown Verified 12/13/20 23:42 barium iodide [Barium Iodide] AdvReac Nausea & Verified 12/13/20 23:42 Vomiting Review of Systems ROS Statement: Those systems with pertinent positive or pertinent negative responses have been documented in the HPI. ROS Other: All systems not noted in ROS Statement are negative. Constitutional: Denies: fever, chills Respiratory: Denies: cough, dyspnea Cardiovascular: Denies: chest pain, palpitations Gastrointestinal: Reports: as per HPI, abdominal pain. Denies: nausea, vomiting, diarrhea, constipation, melena, hematochezia Genitourinary: Reports: abnormal menses. Denies: urgency, dysuria, frequency, hematuria, discharge Musculoskeletal: Denies: back pain Skin: Denies: rash Neurological: Denies: headache, weakness Past Medical History Past Medical History: Diabetes Mellitus, Seizure Disorder Additional Past Medical History / Comment(s): MS, back pain DDD HERNIATED DISK History of Any Multi-Drug Resistant Organisms: None Reported Past Surgical History: Adenoidectomy, Section, Cholecystectomy, Orthopedic Surgery, Tonsillectomy, Tubal Ligation Past Psychological History: Anxiety, Depression Smoking Status: Current every day smoker Past Alcohol Use History: None Reported Past Drug Use History: Marijuana General Exam Limitations: no limitations General appearance: alert, in no apparent distress Head exam: Present: atraumatic, normocephalic Eye exam: Present: normal appearance. Absent: scleral icterus, conjunctival injection ENT exam: Present: normal oropharynx Neck exam: Present: normal inspection Respiratory exam: Present: normal lung sounds bilaterally. Absent: respiratory distress, wheezes, rales, rhonchi, stridor Cardiovascular Exam: Present: regular rate, normal rhythm, normal heart sounds. Absent: systolic murmur, diastolic murmur, rubs, gallop GI/Abdominal exam: Present: soft, tenderness. Absent: distended, rebound, rigid, mass, pulsatile mass, hernia Extremities exam: Present: normal inspection, normal capillary refill. Absent: pedal edema, calf tenderness Back exam: Present: normal inspection. Absent: CVA tenderness (R), CVA tenderness (L) Neurological exam: Present: alert Skin exam: Present: warm, dry, intact, normal color. Absent: rash Course Vital Signs 12/13/20 12/14/20 22:20 01:29 Temperature 98.0 F Pulse Rate 103 H 85 Respiratory 20 18 Rate Blood Pressure 106/60 152/81 O2 Sat by Pulse 98 99 Oximetry Medical Decision Making - Lab Data Result diagrams: 12/13/20 23:13 12/13/20 23:13 Lab Results 12/13/20 12/13/20 12/13/20 Range/Units 23:13 23:13 23:13 WBC 7.9 (3.8-10.6) k/uL RBC 3.72 L (3.80-5.40) m/uL Hgb 12.0 (11.4-16.0) gm/dL Hct 36.8 (34.0-46.0) % MCV 98.9 (80.0-100.0) fL MCH 32.3 (25.0-35.0) pg MCHC 32.7 (31.0-37.0) g/dL RDW 13.2 (11.5-15.5) % Plt Count 236 (150-450) k/uL MPV 7.1 Neutrophils % 63 % Lymphocytes % 26 % Monocytes % 6 % Eosinophils % 3 % Basophils % 1 % Neutrophils # 5.0 (1.3-7.7) k/uL Lymphocytes # 2.0 (1.0-4.8) k/uL Monocytes # 0.5 (0-1.0) k/uL Eosinophils # 0.2 (0-0.7) k/uL Basophils # 0.0 (0-0.2) k/uL Sodium 136 L (137-145) mmol/L Potassium 4.4 (3.5-5.1) mmol/L Chloride 102 (98-107) mmol/L Carbon Dioxide 27 (22-30) mmol/L Anion Gap 7 mmol/L BUN 17 (7-17) mg/dL Creatinine 0.73 (0.52-1.04) mg/dL Est GFR (CKD-EPI)AfAm >90 (>60 ml/min/1.73 sqM) Est GFR (CKD-EPI)NonAf >90 (>60 ml/min/1.73 sqM) Glucose 109 H (74-99) mg/dL Calcium 8.9 (8.4-10.2) mg/dL Total Bilirubin 0.3 (0.2-1.3) mg/dL AST 25 (14-36) U/L ALT 26 (4-34) U/L Alkaline Phosphatase 70 (38-126) U/L Total Protein 6.4 (6.3-8.2) g/dL Albumin 3.8 (3.5-5.0) g/dL Amylase 63 (30-110) U/L Lipase 69 (23-300) U/L Urine Color Yellow Urine Appearance Clear (Clear) Urine pH 7.0 (5.0-8.0) Ur Specific [place] 1.022 (1.001-1.035) Urine Protein Negative (Negative) Urine Glucose (UA) Negative (Negative) Urine Ketones Negative (Negative) Urine Blood Negative (Negative) Urine Nitrite Negative (Negative) Urine Bilirubin Negative (Negative) Urine Urobilinogen 2.0 (<2.0) mg/dL Ur Leukocyte Esterase Moderate H (Negative) Urine RBC 3 (0-5) /hpf Urine WBC 35 H (0-5) /hpf Ur Squamous Epith Cells <1 (0-4) /hpf Urine Bacteria Rare H (None) /hpf Urine Mucus Rare H (None) /hpf Urine HCG, Qual (Not Detectd) 12/13/20 Range/Units 23:13 WBC (3.8-10.6) k/uL RBC (3.80-5.40) m/uL Hgb (11.4-16.0) gm/dL Hct (34.0-46.0) % MCV (80.0-100.0) fL MCH (25.0-35.0) pg MCHC (31.0-37.0) g/dL RDW (11.5-15.5) % Plt Count (150-450) k/uL MPV Neutrophils % % Lymphocytes % % Monocytes % % Eosinophils % % Basophils % % Neutrophils # (1.3-7.7) k/uL Lymphocytes # (1.0-4.8) k/uL Monocytes # (0-1.0) k/uL Eosinophils # (0-0.7) k/uL Basophils # (0-0.2) k/uL Sodium (137-145) mmol/L Potassium (3.5-5.1) mmol/L Chloride (98-107) mmol/L Carbon Dioxide (22-30) mmol/L Anion Gap mmol/L BUN (7-17) mg/dL Creatinine (0.52-1.04) mg/dL Est GFR (CKD-EPI)AfAm (>60 ml/min/1.73 sqM) Est GFR (CKD-EPI)NonAf (>60 ml/min/1.73 sqM) Glucose (74-99) mg/dL Calcium (8.4-10.2) mg/dL Total Bilirubin (0.2-1.3) mg/dL AST (14-36) U/L ALT (4-34) U/L Alkaline Phosphatase (38-126) U/L Total Protein (6.3-8.2) g/dL Albumin (3.5-5.0) g/dL Amylase (30-110) U/L Lipase (23-300) U/L Urine Color Urine Appearance (Clear) Urine pH (5.0-8.0) Ur Specific [place] (1.001-1.035) Urine Protein (Negative) Urine Glucose (UA) (Negative) Urine Ketones (Negative) Urine Blood (Negative) Urine Nitrite (Negative) Urine Bilirubin (Negative) Urine Urobilinogen (<2.0) mg/dL Ur Leukocyte Esterase (Negative) Urine RBC (0-5) /hpf Urine WBC (0-5) /hpf Ur Squamous Epith Cells (0-4) /hpf Urine Bacteria (None) /hpf Urine Mucus (None) /hpf Urine HCG, Qual Not Detected (Not Detectd) Disposition Clinical Impression: Abdominal pain, Ovarian cyst Disposition: HOME SELF-CARE Condition: Good Instructions (If sedation given, give patient instructions): Ovarian Cyst (ED), Abdominal Pain (ED) Prescriptions: Naproxen 250 mg PO BID #20 tablet Is patient prescribed a controlled substance at d/c from ED?: No Referrals: Melchor Macdonald MD [Primary Care Provider] - 1-2 days
[2020-12-13 23:28] LABS: Appearance,Urine Clear (Clear); Bacteria,Urine Rare /hpf; Bilirubin,Urine Negative (Negative); Blood,Urine Negative (Negative); Color,Urine Yellow; Glucose,Urine (UA) Negative (Negative); Ketones,Urine Negative (Negative); Leukocyte Esterase,Urine Moderate (Negative); Mucus,Urine Rare /hpf; Nitrite,Urine Negative (Negative); Protein,Urine Negative (Negative); RBC,Urine 3 /hpf (0-5); Specific Gravity,Urine 1.022 (1.001-1.035); Squamous Epithelial Cell,Urine <1 /hpf (0-4); WBC,Urine 35 /hpf (0-5)
[2020-12-13 23:34] LABS: Basophils % (A) 1 %; Eosinophils # (A) 0.2 k/uL (0-0.7); Eosinophils % (A) 3 %; HCT 36.8 % (34.0-46.0); Lymphocytes % (A) 26 %; MCH 32.3 pg (25.0-35.0); MCHC 32.7 g/dL (31.0-37.0); MCV 98.9 fL (80.0-100.0); Mean Platelet Volume 7.1; Monocytes # (A) 0.5 k/uL (0-1.0); Monocytes % (A) 6 %; Neutrophils % (A) 63 %; Platelet Count 236 k/uL (150-450); RBC 3.72 m/uL (3.80-5.40); RDW 13.2 % (11.5-15.5); WBC 7.9 k/uL (3.8-10.6)
[2020-12-13 23:45] LABS: ALT 26 U/L (4-34); AST 25 U/L (14-36); African American GFR (CKD) >90 (>60 ml/min/1.73 sqM); Albumin 3.8 g/dL (3.5-5.0); Alkaline Phosphatase 70 U/L (38-126); Amylase 63 U/L (30-110); Anion Gap 7 mmol/L; Blood Urea Nitrogen 17 mg/dL (7-17); Calcium 8.9 mg/dL (8.4-10.2); Carbon Dioxide 27 mmol/L (22-30); Chloride 102 mmol/L (98-107); Glucose 109 mg/dL (74-99); Lipase 69 U/L (23-300); Non-African American GFR(CKD) >90 (>60 ml/min/1.73 sqM); Potassium 4.4 mmol/L (3.5-5.1); Sodium 136 mmol/L (137-145); Total Bilirubin 0.3 mg/dL (0.2-1.3); Total Protein 6.4 g/dL (6.3-8.2)
--- NOTE | 2020-12-14 00:26 | US ---
EXAMINATION TYPE: US transvaginal DATE OF EXAM: 12/14/2020 COMPARISON: 07/27/2013 CLINICAL HISTORY: RLQ pain. RLQ pain, vaginal bleeding TECHNIQUE: Transvaginal (TV). Transvaginal sonographic images of the pelvis were acquired. Date of LMP: 12/01/2020 EXAM MEASUREMENTS: Uterus: 9.0 x 4.1 x 5.7 cm Endometrial Stripe: 1.0 cm Right Ovary: 4.4 x 2.5 x 3.2 cm Left Ovary: 2.6 x 1.4 x 2.2 cm 1. Uterus: Anteverted Heterogeneous, Nabothian cysts in cervix 2. Endometrium: wnl 3. Right Ovary: Cyst= 2.7 x 2.3 x 2.9 cm 4. Left Ovary: wnl Spectral, color and waveform doppler imaging shows good arterial and venous flow within the ovaries ; there is no evidence for ovarian torsion. 5. Bilateral Adnexa: wnl 6. Posterior cul-de-sac: wnl IMPRESSION: There is dominant simple cyst on the right ovary. No solid adnexal mass. No free fluid. No evidence o f ovarian torsion.
--- NOTE | 2020-12-14 00:48 | XR ---
EXAMINATION TYPE: XR KUB DATE OF EXAM: 12/14/2020 COMPARISON: 12/01/2014 HISTORY: Pain TECHNIQUE: 2 views upright FINDINGS: There is no sign of intestinal obstruction or pneumoperitoneum. Fecal pattern is normal. Th ere is no sign of a mass. Lung bases show slight blunting on the left side costophrenic angle. There are clips from cholecystectomy. There are no pathologic calcifications over the kidneys. IMPRESSION: Nonacute abdomen. No adverse change.
[2020-12-14] MEDS ORDERED: MORPHINE SULFATE 4 MG/ML SYRINGE IV STA ×2 (01:06→03:19)
--- NOTE | 2020-12-14 01:39 | CT ---
EXAMINATION TYPE: CT abdomen pelvis wo con DATE OF EXAM: 12/14/2020 COMPARISON: None HISTORY: RLQ pain CT DLP: 1033.4 mGycm Automated exposure control for dose reduction was used. Images obtained from the diaphragm to the floor the pelvis with no contrast. Lung bases are clear. There is no pleural effusion. Heart size is normal. There is no pericardial eff usion. There are clips from cholecystectomy. Liver spleen stomach appear intact. The bile ducts are n ot dilated. There is no sign of pancreatic mass. Liver shows no focal defect. There is no adrenal mass. Kidneys have normal size and contour. There is no hydronephrosis. Ureters a re not dilated. Appendix is posterior and appears normal. There is no retroperitoneal adenopathy. Teo dder distends smoothly. Uterus is anteverted. There is no inguinal hernia. There is no sign of a pelv ic solid mass. There is 2.8 cm cyst on the right ovary. There is no free fluid in the pelvis. There is no mesenteric edema. There is no ascites or free air. There is no bowel obstruction. IMPRESSION: Right ovarian cyst. Normal appendix.
[2020-12-14] MEDS ORDERED: ACET/COD 300 MG/30 MG STARTER PACK 6 TAB BTL PO STA (03:18)
[2020-12-14 03:45] VITALS: BP 111/73; PULSE 86; RESP 16
== END 2020-12-14 03:45 | disposition home or self-care (01) ==
LOC: EC 21:47
DX: N83.201 Unspecified ovarian cyst, right side (principal); E11.9 Type 2 diabetes mellitus without complications; F17.200 Nicotine dependence, unspecified, uncomplicated; Z88.0 Allergy status to penicillin; Z88.4 Allergy status to anesthetic agent; Z88.2 Allergy status to sulfonamides; Z88.7 Allergy status to serum and vaccine; Z91.018 Allergy to other foods; Z88.8 Allergy status to other drugs, medicaments and biological substances; Z88.1 Allergy status to other antibiotic agents; Z90.49 Acquired absence of other specified parts of digestive tract
CPT/HCPCS: 36415; 80053; 82150; 83690; 85025; 81001; 81025; 87086; 87077; 87186; 74018; 93975; 76830; 74176; 99284; 96374; 96376; J2270 ×2

== ENCOUNTER 2021-01-26 08:15 | Emergency (ER) | payer OTHER ==
[2021-01-26 08:19] VITALS: BP 112/75; PULSE 100; TEMP 97.3
[2021-01-26] MEDS ORDERED: HYDROmorphone 1 MG/ML 1 ML SYRINGE IM STA ×2 (08:35→12:03)
[2021-01-26] MEDS ORDERED: HYDROmorphone 1 MG/ML 1 ML SYRINGE IVP STA (09:48)
[2021-01-26 10:56] VITALS: RESP 18
[2021-01-26] MEDS ORDERED: ACET/COD 300 MG/30 MG STARTER PACK 6 TAB BTL PO STA (11:44)
--- NOTE | 2021-01-26 12:04 | ED ---
Abdominal Pain HPI - General Chief Complaint: Abdominal Pain Stated Complaint: Vaginal Bleeding Time Seen by Provider: 01/26/21 08:20 Source: patient, RN notes reviewed Mode of arrival: ambulatory Limitations: no limitations - History of Present Illness Initial Comments: Patient is a [age] female that presents to emergency department complaining of ovarian cyst pain. She was informed by her RESIDENTIAL BUILDER to come emergency room for pain control until she can get in for a procedure. She notes she is having an ablation done at this month. She notes that the pain became unbearable was splinted can emergency room for symptomatic for pain she denied any issues or complaints. She is aware and states that she knows the ER is not for pain control and feels better coming in. She denied chest pain shortness breath headache nausea vomiting diarrhea constipation fever fatigue chills. - Related Data Home Medications Medication Instructions Recorded Confirmed Oxybutynin Chloride [Ditropan] 5 mg PO BID 03/22/20 12/13/20 Escitalopram [Lexapro] 20 mg PO DAILY 12/13/20 12/13/20 Meclizine HCl 25 mg PO TID PRN 12/13/20 12/13/20 Previous Rx's Medication Instructions Recorded Naproxen 250 mg PO BID #20 tablet 12/14/20 Allergies Allergy/AdvReac Type Severity Reaction Status Date / Time Penicillins Allergy Unknown Dyspnea Verified 01/26/21 08:19 cephalexin monohydrate Allergy Unknown Verified 01/26/21 08:19 [From Keflex] Childhood lidocaine Allergy Rash/Hives/Shortness Verified 01/26/21 08:19 of Breath Sulfa (Sulfonamide Allergy Unknown Verified 01/26/21 08:19 Antibiotics) Childhood tetanus toxoid, adsorbed Allergy Unknown Verified 01/26/21 08:19 tomato Allergy Unknown Verified 01/26/21 08:19 barium iodide [Barium Iodide] AdvReac Nausea & Verified 01/26/21 08:19 Vomiting Review of Systems ROS Statement: Those systems with pertinent positive or pertinent negative responses have been documented in the HPI. ROS Other: All systems not noted in ROS Statement are negative. Past Medical History Past Medical History: Diabetes Mellitus, Seizure Disorder Additional Past Medical History / Comment(s): MS, back pain DDD HERNIATED DISK History of Any Multi-Drug Resistant Organisms: None Reported Past Surgical History: Adenoidectomy, Section, Cholecystectomy, Orthopedic Surgery, Tonsillectomy, Tubal Ligation Past Psychological History: Anxiety, Depression Smoking Status: Current every day smoker Past Alcohol Use History: None Reported Past Drug Use History: Marijuana General Exam Limitations: no limitations General appearance: alert, in no apparent distress, obese Head exam: Present: atraumatic, normocephalic, normal inspection Eye exam: Present: normal appearance, PERRL, EOMI. Absent: scleral icterus, conjunctival injection, periorbital swelling ENT exam: Present: normal exam, mucous membranes moist Neck exam: Present: normal inspection. Absent: tenderness, meningismus, lymphadenopathy Respiratory exam: Present: normal lung sounds bilaterally. Absent: respiratory distress, wheezes, rales, rhonchi, stridor Cardiovascular Exam: Present: regular rate, normal rhythm, normal heart sounds. Absent: systolic murmur, diastolic murmur, rubs, gallop, clicks GI/Abdominal exam: Present: soft, normal bowel sounds. Absent: distended, tenderness, guarding, rebound, rigid Extremities exam: Present: normal inspection, full ROM, normal capillary refill. Absent: tenderness, pedal edema, joint swelling, calf tenderness Neurological exam: Present: alert, oriented X3 Psychiatric exam: Present: normal affect, normal mood Skin exam: Present: warm, dry, intact, normal color. Absent: rash Course Vital Signs 01/26/21 01/26/21 01/26/21 08:15 09:19 10:58 Temperature 97.3 F L Pulse Rate 100 Respiratory 20 18 18 Rate Blood Pressure 112/75 O2 Sat by Pulse 99 Oximetry Medical Decision Making - Medical Decision Making 40-year-old female complaining of ovarian cyst pain one is rectal. 1 mg of Dilaudid ordered for pain. Upon evaluation patient states that pain mildly decreased, 1 more milligram of Dilaudid ordered. Patient is agreeable with discharge home with Tylenol 3 starter pack and follow- up to [facility]IDENT[facility]DER. Case discussed with Dr. Payne, patient discharge home. Disposition Clinical Impression: Ovarian cyst, Abdominal pain Disposition: HOME SELF-CARE Condition: Stable Instructions (If sedation given, give patient instructions): Abdominal Pain (ED) Additional Instructions: Please return to the Emergency Department if symptoms worsen or any other concerns. Is patient prescribed a controlled substance at d/c from ED?: No Referrals: None,Stated [Primary Care Provider] - 1-2 days Time of Disposition: 12:04
== END 2021-01-26 12:20 | disposition home or self-care (01) ==
LOC: EC 08:15
DX: N83.209 Unspecified ovarian cyst, unspecified side (principal); E11.9 Type 2 diabetes mellitus without complications; F41.9 Anxiety disorder, unspecified; F32.9 Major depressive disorder, single episode, unspecified; F17.200 Nicotine dependence, unspecified, uncomplicated; F12.90 Cannabis use, unspecified, uncomplicated; Z88.0 Allergy status to penicillin; Z88.1 Allergy status to other antibiotic agents; Z88.2 Allergy status to sulfonamides; Z88.7 Allergy status to serum and vaccine; Z90.89 Acquired absence of other organs; Z90.49 Acquired absence of other specified parts of digestive tract; Z98.51 Tubal ligation status
CPT/HCPCS: 99283; 96374; 96372 ×2; J1170

== ENCOUNTER 2021-03-22 13:47 | Emergency (ER) | payer OTHER ==
[2021-03-22] MEDS ORDERED: SODIUM CHLORIDE 0.9% 50 ML IVPB ONE (16:00)
[2021-03-22] MEDS ORDERED: BAMLANIVIMAB (EUA) 700 MG, ETESEVIMAB (EUA) 1,400 MG in SODIUM CHLORIDE 0.9% 100 ML IVPB ONE (16:00)
--- NOTE | 2021-03-22 17:47 | ED ---
General Adult HPI - General Chief complaint: Fever Stated complaint: Covid Exposure,Wants COVID Test Source: patient Mode of arrival: ambulatory Limitations: no limitations - History of Present Illness Initial comments: Patient is a 40-year-old female presents to the ER today for few days of COVID- 19. Patient only treatment with monoclonal antibodies. She is nonicteric states any chest pain or shortness of breath at this time. - Related Data Home Medications Medication Instructions Recorded Confirmed Oxybutynin Chloride [Ditropan] 5 mg PO BID 03/22/20 12/13/20 Escitalopram [Lexapro] 20 mg PO DAILY 12/13/20 12/13/20 Meclizine HCl 25 mg PO TID PRN 12/13/20 12/13/20 Previous Rx's Medication Instructions Recorded Naproxen 250 mg PO BID #20 tablet 12/14/20 Allergies Allergy/AdvReac Type Severity Reaction Status Date / Time Penicillins Allergy Unknown Dyspnea Verified 03/22/21 14:03 cephalexin monohydrate Allergy Unknown Verified 03/22/21 14:03 [From Keflex] Childhood lidocaine Allergy Rash/Hives/Shortness Verified 03/22/21 14:03 of Breath Sulfa (Sulfonamide Allergy Unknown Verified 03/22/21 14:03 Antibiotics) Childhood tetanus toxoid, adsorbed Allergy Unknown Verified 03/22/21 14:03 tomato Allergy Unknown Verified 03/22/21 14:03 barium iodide [Barium Iodide] AdvReac Nausea & Verified 03/22/21 14:03 Vomiting Review of Systems ROS Statement: Those systems with pertinent positive or pertinent negative responses have been documented in the HPI. ROS Other: All systems not noted in ROS Statement are negative. Past Medical History Past Medical History: Diabetes Mellitus, Seizure Disorder Additional Past Medical History / Comment(s): MS, back pain DDD HERNIATED DISK History of Any Multi-Drug Resistant Organisms: None Reported Past Surgical History: Adenoidectomy, Section, Cholecystectomy, Orthopedic Surgery, Tonsillectomy, Tubal Ligation Past Psychological History: Anxiety, Depression Smoking Status: Current every day smoker Past Alcohol Use History: None Reported Past Drug Use History: Marijuana General Exam - General Exam Comments Initial Comments: Physical Exam GENERAL: Patient is well-developed and well-nourished. Patient is nontoxic and well-hydrated and is in no distress. BMI 31 HENT: Normocephalic, Atraumatic. EYES: PERRL, EOMI PULMONARY: Unlabored respirations. CARDIOVASCULAR: RRR Warm and well perfused extremities ABDOMEN: Non-distended SKIN: No rashes or bruising : Deferred NEUROLOGIC: Alert and oriented Normal speech Normal gait MUSCULOSKELETAL: Moving all extremities with no apparent injury PSYCHIATRIC: No SI/HI Limitations: no limitations Course Vital Signs 03/22/21 03/22/21 03/22/21 14:03 16:05 16:49 Temperature 98 F Pulse Rate 123 H 81 Respiratory 18 18 18 Rate Blood Pressure 136/88 123/81 O2 Sat by Pulse 100 97 Oximetry Medical Decision Making - Medical Decision Making Patient was seen and evaluated, history is obtained from patient this 40-year-old with a history of MS who is therefore a candidate for treatment of multiple antibodies for COVID-19. Patient is not hypoxic requiring oxygen supplementation. She received monoclonal antibodies without reaction was observed for one hour and was discharged home in stable condition Report of care and return parameters were discussed - Lab Data Lab Results 03/22/21 Range/Units 14:07 Coronavirus (PCR) Detected A (Not Detectd) Disposition Clinical Impression: COVID-19 Disposition: HOME SELF-CARE Condition: Stable Instructions (If sedation given, give patient instructions): Coronavirus Disease 2019 (COVID-19) Additional Instructions: Take supplements including vitamin C, vitamin D and Zinc Drink plenty of fluids to stay hydrated Treat your fever with Tylenol and Motrin Monitor your oxygen saturation and heart rate, return to the emergency department if your oxygens remains below 90% heart rate remains over 110 at rest Is patient prescribed a controlled substance at d/c from ED?: No Referrals: Melchor Macdonald MD [Primary Care Provider] - 1-2 days
[2021-03-22 17:54] VITALS: BP 133/78; PULSE 69; RESP 16; TEMP 99
== END 2021-03-22 17:54 | disposition home or self-care (01) ==
LOC: EC 13:47
DX: U07.1 COVID-19 (principal); E11.9 Type 2 diabetes mellitus without complications; G40.909 Epilepsy, unspecified, not intractable, without status epilepticus; F41.9 Anxiety disorder, unspecified; F32.A Depression, unspecified; F12.90 Cannabis use, unspecified, uncomplicated; F17.200 Nicotine dependence, unspecified, uncomplicated
CPT/HCPCS: 87635; 99283; J3490

== ENCOUNTER 2021-11-22 09:16 | Emergency (ER) | payer OTHER ==
[2021-11-22 09:20] VITALS: BP 112/70; PULSE 107; RESP 22; TEMP 98.6
--- NOTE | 2021-11-22 10:34 | XR ---
EXAMINATION TYPE: XR chest 2V DATE OF EXAM: 11/22/2021 COMPARISON: 03/22/2020, 08/23/2015 TECHNIQUE: PA and lateral views submitted. HISTORY: Cough FINDINGS: Elevated left hemidiaphragm with blunting of the costophrenic angle and subsegmental consolidation st able from multiple prior exams and therefore appears to be chronic. Heart size normal. No overt failure. Hyperinflation suggesting asthma or COPD. Mild hypertrophic hopson ges of the spine. Lateral view suggests surgical clips in the upper abdomen. IMPRESSION: 1. No acute process. Stable elevated left hemidiaphragm with blunting of the left costophrenic angle unchanged from 2019 and retrospectively stable dating back to 2015. Chronic pleural thickening or ate lectasis favored. 2. Correlate for asthma or COPD.
--- NOTE | 2021-11-22 11:29 | ED ---
URI HPI - General Chief Complaint: Upper Respiratory Infection Stated Complaint: fever,body aches Time Seen by Provider: 11/22/21 09:28 Source: patient, RN notes reviewed Mode of arrival: ambulatory Limitations: no limitations - History of Present Illness Initial Comments: 41-year-old female presents emergency from chief complaint of cough congestion. Patient states she has fever bodyaches, fever, chills, nasal congestion and cough. Patient roommate tested positive for COVID-19 his symptoms started 3 days ago. Patient states she is having exact same symptoms.. Patient has any shortness breath no nausea vomiting diarrhea constipation. Patient offers no other associated complaints. - Related Data Previous Rx's Medication Instructions Recorded Nirmatrelvir/Ritonavir [Paxlovid See Rx Instructions .ROUTE 11/22/21 2X150 mg-100 mg (Eua)] .COMPLEX #30 tab Allergies Allergy/AdvReac Type Severity Reaction Status Date / Time Penicillins Allergy Unknown Dyspnea Verified 11/22/21 11:25 cephalexin monohydrate Allergy Unknown Verified 11/22/21 11:25 [From Keflex] Childhood lidocaine Allergy Rash/Hives/Shortness Verified 11/22/21 11:25 of Breath Sulfa (Sulfonamide Allergy Unknown Verified 11/22/21 11:25 Antibiotics) Childhood tetanus toxoid, adsorbed Allergy Unknown Verified 11/22/21 11:25 tomato Allergy Unknown Verified 11/22/21 11:25 barium iodide [Barium Iodide] AdvReac Nausea & Verified 11/22/21 11:25 Vomiting Review of Systems ROS Statement: Those systems with pertinent positive or pertinent negative responses have been documented in the HPI. ROS Other: All systems not noted in ROS Statement are negative. Past Medical History Past Medical History: Diabetes Mellitus, Seizure Disorder Additional Past Medical History / Comment(s): MS, back pain DDD HERNIATED DISK History of Any Multi-Drug Resistant Organisms: None Reported Past Surgical History: Adenoidectomy, Section, Cholecystectomy, Orthopedic Surgery, Tonsillectomy, Tubal Ligation Past Psychological History: Anxiety, Depression Smoking Status: Current every day smoker Past Alcohol Use History: None Reported Past Drug Use History: Marijuana General Exam Limitations: no limitations General appearance: alert, in no apparent distress Head exam: Present: atraumatic, normocephalic, normal inspection Eye exam: Present: normal appearance, PERRL, EOMI. Absent: scleral icterus, conjunctival injection, periorbital swelling ENT exam: Present: normal exam, normal oropharynx, mucous membranes moist Neck exam: Present: normal inspection, full ROM. Absent: tenderness, meningismus, lymphadenopathy Respiratory exam: Present: normal lung sounds bilaterally. Absent: respiratory distress, wheezes, rales, rhonchi, stridor Cardiovascular Exam: Present: regular rate, normal rhythm, normal heart sounds. Absent: systolic murmur, diastolic murmur, rubs, gallop, clicks Course Vital Signs 11/22/21 09:18 Temperature 98.6 F Pulse Rate 107 H Respiratory 22 Rate Blood Pressure 112/70 O2 Sat by Pulse 99 Oximetry Medical Decision Making - Medical Decision Making Patient's x-rays unremarkable. Patient's remaining tested positive for COVID- 19. She clinically has Coban 18 week treated for this. Patient we discharged in stable condition return parameters were discussed. - Lab Data Lab Results 11/22/21 Range/Units 09:23 Coronavirus (PCR) Not Detected (Not Detectd) Disposition Clinical Impression: COVID-19 Disposition: HOME SELF-CARE Condition: Stable Instructions (If sedation given, give patient instructions): COVID-19 (Coronavirus Disease 2019) (ED) Additional Instructions: Please return to the Emergency Department if symptoms worsen or any other concerns. Prescriptions: Nirmatrelvir/Ritonavir [Paxlovid 2X150 mg-100 mg (Eua)] See Rx Instructions .ROUTE .COMPLEX #30 tab Is patient prescribed a controlled substance at d/c from ED?: No Referrals: Melchor Macdonald MD [Primary Care Provider] - 1-2 days Time of Disposition: 11:29
== END 2021-11-22 11:45 | disposition home or self-care (01) ==
LOC: EC 09:16
DX: U07.1 COVID-19 (principal); E11.9 Type 2 diabetes mellitus without complications; F41.9 Anxiety disorder, unspecified; F32.A Depression, unspecified; F17.200 Nicotine dependence, unspecified, uncomplicated; F12.90 Cannabis use, unspecified, uncomplicated; Z88.0 Allergy status to penicillin; Z88.2 Allergy status to sulfonamides; Z88.7 Allergy status to serum and vaccine; Z91.018 Allergy to other foods; Z91.041 Radiographic dye allergy status; Z79.899 Other long term (current) drug therapy
CPT/HCPCS: 71046; 87635; 99283

== ENCOUNTER 2022-01-14 15:36 | Emergency (ER) | payer OTHER ==
[2022-01-14 16:13] VITALS: TEMP 98.1
--- NOTE | 2022-01-14 16:41 | XR ---
EXAMINATION TYPE: XR foot complete RT DATE OF EXAM: 01/14/2022 COMPARISON: NONE HISTORY: Foot pain TECHNIQUE: Reviews FINDINGS: Metatarsals are intact. I see no fracture nor dislocation. The joint spaces are normal. The re is plantar calcaneal spurring. IMPRESSION: Calcaneal spurring. No fracture seen.
--- NOTE | 2022-01-14 16:52 | ED ---
Lower Extremity Injury HPI - General Chief Complaint: Extremity Injury, Lower Stated Complaint: RT foot pain Time Seen by Provider: 01/14/22 16:50 Source: patient, RN notes reviewed, old records reviewed Mode of arrival: ambulatory Limitations: no limitations - History of Present Illness Initial Comments: 41-year-old female presents ambulatory with complaints of 1 month of right foot pain. Patient states was at a wedding and her foot fell asleep and when she stood up rolled her ankle causing foot pain. States felt a pop at the time of injury. She has been walking on it however complaining of increased pain. She has a history of surgical procedure on this same foot with Dr. Hong years ago. Complaint: foot injury (right) -: month(s) (1) Type of Injury: inversion Severity scale (1-10): 6 Worsens With: movement Context: other (rolled ankle) Associated Symptoms: snap/pop sensation - Related Data Previous Rx's Medication Instructions Recorded Nirmatrelvir/Ritonavir [Paxlovid See Rx Instructions .ROUTE 11/22/21 2X150 mg-100 mg (Eua)] .COMPLEX #30 tab Allergies Allergy/AdvReac Type Severity Reaction Status Date / Time Penicillins Allergy Unknown Dyspnea Verified 01/14/22 16:13 cephalexin monohydrate Allergy Unknown Verified 01/14/22 16:13 [From Keflex] Childhood lidocaine Allergy Rash/Hives/Shortness Verified 01/14/22 16:13 of Breath Sulfa (Sulfonamide Allergy Unknown Verified 01/14/22 16:13 Antibiotics) Childhood tetanus toxoid, adsorbed Allergy Unknown Verified 01/14/22 16:13 tomato Allergy Unknown Verified 01/14/22 16:13 barium iodide [Barium Iodide] AdvReac Nausea & Verified 01/14/22 16:13 Vomiting Review of Systems ROS Statement: Those systems with pertinent positive or pertinent negative responses have been documented in the HPI. ROS Other: All systems not noted in ROS Statement are negative. Past Medical History Past Medical History: Diabetes Mellitus, Seizure Disorder Additional Past Medical History / Comment(s): MS, back pain DDD HERNIATED DISK History of Any Multi-Drug Resistant Organisms: None Reported Past Surgical History: Adenoidectomy, Section, Cholecystectomy, Orthopedic Surgery, Tonsillectomy, Tubal Ligation Past Psychological History: Anxiety, Depression Smoking Status: Current every day smoker Past Alcohol Use History: None Reported Past Drug Use History: Marijuana General Exam Limitations: no limitations General appearance: alert, in no apparent distress Respiratory exam: Absent: respiratory distress, accessory muscle use Cardiovascular Exam: Present: regular rate Right Ankle exam: Present: full ROM. Absent: tenderness, swelling Foot/Toe exam: Present: normal inspection, tenderness, tenderness at base of 5th metatarsal. Absent: swelling, ecchymosis, deformity, calcaneal tenderness Neurovascular tendon exam: Present: no vascular compromise. Absent: abnormal cap refill, extremity cold to touch Gait: observed and normal Neurological exam: Present: alert, oriented X3 Psychiatric exam: Present: normal affect, normal mood Skin exam: Present: warm, dry, normal color. Absent: cyanosis, diaphoretic, petechiae, pallor Course Vital Signs 01/14/22 01/14/22 16:11 17:25 Temperature 98.1 F Pulse Rate 91 72 Respiratory 20 18 Rate Blood Pressure 101/60 112/64 O2 Sat by Pulse 98 97 Oximetry Medical Decision Making - Medical Decision Making Patient rolled her ankle at a wedding a month ago and continues to have pain at the base of the fifth metatarsal. This is also the site of a previous ankle fracture and surgery. X-ray shows metatarsals intact, no fracture or dislocation. Joint spaces are normal. Capillary refill less than 2 seconds. Pedal pulses are present. No bruising or swelling noted. This is likely a sprain and she was directed to wear hard soled shoe, post op shoe provided, follow up with orthopedics or podiatry for continuation of care. Tylenol and or Motrin as needed for pain or discomfort. Case discussed with Dr. Thomas Disposition Clinical Impression: Foot pain, right Disposition: HOME SELF-CARE Condition: Good Instructions (If sedation given, give patient instructions): Foot Sprain (ED) Additional Instructions: Tylenol and/or Motrin as needed for pain. Follow-up with orthopedics or podiatry for continuation of care. Is patient prescribed a controlled substance at d/c from ED?: No Referrals: Melchor Macdonald MD [Primary Care Provider] - 1-2 days Osmar Mercedes DO [Doctor of Osteopathic Medicine] - 1-2 days Time of Disposition: 17:08
[2022-01-14] MEDS ORDERED: IBUPROFEN 600 MG TAB PO STA (16:59)
[2022-01-14 17:28] VITALS: BP 112/64; PULSE 72; RESP 18
== END 2022-01-14 17:28 | disposition home or self-care (01) ==
LOC: EC 15:36
DX: M79.671 Pain in right foot (principal); E11.9 Type 2 diabetes mellitus without complications; E07.9 Disorder of thyroid, unspecified; F32.A Depression, unspecified; F41.9 Anxiety disorder, unspecified; F17.200 Nicotine dependence, unspecified, uncomplicated; F12.90 Cannabis use, unspecified, uncomplicated; Z88.1 Allergy status to other antibiotic agents; Z88.4 Allergy status to anesthetic agent; Z88.2 Allergy status to sulfonamides; Z88.7 Allergy status to serum and vaccine; Z91.041 Radiographic dye allergy status; W18.42XA Slipping, tripping and stumbling without falling due to stepping into hole or opening, initial encounter
CPT/HCPCS: 99283

== ENCOUNTER 2022-09-11 21:24 | Emergency (ER) | payer OTHER ==
[2022-09-11 21:43] VITALS: BP 134/95; PULSE 81; RESP 18
[2022-09-11 21:44] VITALS: TEMP 98
[2022-09-12] MEDS ORDERED: DEXAMETHASONE SOD PHOSPHATE 10 MG/ML 1 ML VIAL ONE (00:50)
[2022-09-12] MEDS ORDERED: diphenhydrAMINE 50 MG/ML 1 ML VIAL ONE (00:50)
[2022-09-12] MEDS ORDERED: MORPHINE SULFATE 4 MG/ML SYRINGE ONE (00:50)
[2022-09-12] MEDS ORDERED: METOCLOPRAMIDE 5 MG/ML 2 ML VIAL ONE (00:50)
[2022-09-12] MEDS ORDERED: SODIUM CHLORIDE 0.9% 1,000 ML BAG ONE (01:00)
--- NOTE | 2022-09-12 15:29 | CT ---
EXAM: CT Head Without Intravenous Contrast CLINICAL HISTORY: hit head 1 week ago, headache since not getting better. TECHNIQUE: Axial computed tomography images of the head/brain without intravenous contrast. CTDI is 49.2 mGy and DLP is 1276.4 mGy-cm. This CT exam was performed using one or more of the following dose reduction techniques: automated exposure control, adjustment of the mA and/or kV according to patient size, and/or use of iterative reconstruction technique. COMPARISON: MRI 01/24/2015. Head CT 09/17/2012. FINDINGS: Brain: Unremarkable. No hemorrhage. No significant white matter disease. No edema. Ventricles: Unremarkable. No ventriculomegaly. Bones/joints: Unremarkable. No acute fracture. Soft tissues: Unremarkable. Sinuses: Unremarkable as visualized. No acute sinusitis. Mastoid air cells: Unremarkable as visualized. No mastoid effusion. IMPRESSION: No evidence of acute intracranial abnormality.
== END 2022-09-12 03:00 | disposition home or self-care (01) ==
LOC: EC 21:24
DX: S09.90XA Unspecified injury of head, initial encounter (principal); X58.XXXA Exposure to other specified factors, initial encounter
CPT/HCPCS: 70450; 99284; 96374; 96375 ×3; 96361; J2270; J1200; J1100; J2765

== ENCOUNTER 2022-10-31 15:36 | Emergency (ER) | payer OTHER ==
[2022-10-31 15:51] VITALS: BP 119/82; PULSE 80; RESP 20; TEMP 98.6
[2022-10-31] MEDS ORDERED: DEXAMETHASONE SOD PHOSPHATE 10 MG/ML 1 ML VIAL IM STA (16:18)
--- NOTE | 2022-10-31 16:56 | CT ---
EXAMINATION TYPE: CT brain cspine wo con DATE OF EXAM: 10/31/2022 COMPARISON: Brain 09/12/2022 HISTORY: 42-year-old female headache, numbness to right side of face CT DLP: 1227.8 mGycm Automated exposure control for dose reduction was used. Technique: Examination of the head was done in axial plane without intravenous contrast. Coronal and sagittal reconstructions performed. CT of the cervical spine was obtained in axial plane without intravenous injection of contrast mater ial. Coronal and sagittal reformatted images were obtained from the axial views for evaluation of f ractures, spinal alignment and canal. FINDINGS: Head: There is no evidence of acute intracranial hemorrhage, acute ischemic changes, mass, mass-effect, or extra-axial fluid collection. There is no effacement of cerebral sulci or basal subarachnoid cister ns. There is no hydrocephalus. There is no midline shift. [place]-white matter distinction is preserv ed. Unchanged slight asymmetrically larger right lateral ventricle likely congenital variation. Minimal 3 mm benign cerebellar tonsillar ectopia on both sides. Mild mucosal thickening right maxillary sinus. Prominent rightward nasal septal deviation. Mastoid ai r cells are well pneumatized. The globes are intact. Cervical spine: Prominent periodontal disease incidentally noted especially involving the right-sided maxillary teeth . Moderate bilateral palatine tonsillar hypertrophy. Extensive bilateral lingual tonsillar hypertroph y. No craniocervical junction abnormality, predental space widening, or prevertebral soft tissue swellin g. No acute fracture the cervical spine. Alignment is maintained and disc interspaces are also preserved. No evident canal compromise by CT th ough assessment of the spinal canal from C6 and below is limited due to artifact from patient's shoul ders. No significant neuroforaminal narrowing identified. Sagittal and coronal reformatted images confirm above findings. COMBINED IMPRESSION: 1. No acute intracranial abnormality seen. 2. No acute fracture or malalignment of the cervical spine. 3. Incidental extensive right maxillary periodontal disease. 4. Moderate bilateral palatine tonsillar and lingual tonsillar hypertrophy.
[2022-10-31] MEDS ORDERED: KETOROLAC 15 MG/ML 1 ML VIAL IM STA (17:17)
--- NOTE | 2022-10-31 17:23 | ED ---
General Adult HPI - General Chief complaint: Extremity Injury, Upper Stated complaint: right numbness Time Seen by Provider: 10/31/22 16:08 Source: patient Mode of arrival: ambulatory Limitations: no limitations - History of Present Illness Initial comments: 42-year-old female presenting with chief complaint of numbness and tingling to the right arm and shoulder ongoing for 3-4 days. Patient states that she has pain as well as pins and needle sensation traveling up the arm into her shoulder and neck. She denies any injury or trauma. She has full range of motion. No vision or hearing changes. She has a headache, which she attributes to stress from this pain. No nausea, vomiting, dizziness. No weakness. Patient also states that she has been out of her Depakote for 2 weeks as she cannot get in to see her provider. - Related Data Home Medications Medication Instructions Recorded Confirmed Divalproex ER [Depakote ER] 500 mg PO DAILY 10/31/22 10/31/22 Previous Rx's Medication Instructions Recorded Divalproex [Depakote] 500 mg PO DAILY #30 tab 10/31/22 methylPREDNISolone Dose Pack 4 mg PO DIRECTED #1 packet 10/31/22 [Medrol Dose Pack] Allergies Allergy/AdvReac Type Severity Reaction Status Date / Time Penicillins Allergy Unknown Dyspnea Verified 10/31/22 16:24 cephalexin monohydrate Allergy Unknown Verified 10/31/22 16:24 [From Keflex] Childhood lidocaine Allergy Rash/Hives/Shortness Verified 10/31/22 16:24 of Breath Sulfa (Sulfonamide Allergy Unknown Verified 10/31/22 16:24 Antibiotics) Childhood tetanus toxoid, adsorbed Allergy Unknown Verified 10/31/22 16:24 tomato Allergy Unknown Verified 10/31/22 16:24 barium iodide [Barium Iodide] AdvReac Nausea & Verified 10/31/22 16:24 Vomiting Review of Systems ROS Statement: Those systems with pertinent positive or pertinent negative responses have been documented in the HPI. ROS Other: All systems not noted in ROS Statement are negative. Past Medical History Past Medical History: Diabetes Mellitus, Seizure Disorder Additional Past Medical History / Comment(s): MS, back pain DDD HERNIATED DISK History of Any Multi-Drug Resistant Organisms: None Reported Past Surgical History: Adenoidectomy, Section, Cholecystectomy, Orthopedic Surgery, Tonsillectomy, Tubal Ligation Past Psychological History: Anxiety, Depression Smoking Status: Current every day smoker Past Alcohol Use History: None Reported Past Drug Use History: Marijuana General Exam Limitations: no limitations General appearance: alert, in no apparent distress Head exam: Present: atraumatic, normocephalic, normal inspection Eye exam: Present: normal appearance, PERRL, EOMI. Absent: scleral icterus, conjunctival injection, periorbital swelling Pupils: Present: normal accommodation Neck exam: Present: normal inspection, tenderness (Right-sided paraspinal tenderness), full ROM. Absent: meningismus Respiratory exam: Present: normal lung sounds bilaterally. Absent: respiratory distress, wheezes, rales, rhonchi, stridor Cardiovascular Exam: Present: regular rate, normal rhythm, normal heart sounds. Absent: systolic murmur, diastolic murmur, rubs, gallop, clicks Extremities exam: Present: normal inspection, full ROM, normal capillary refill Neurological exam: Present: alert, oriented X3, CN II-XII intact Expanded Patient oriented to: Present: person, place, time Speech: Present: fluid speech Cranial nerves: EOM's Intact: Normal Motor strength exam: RUE: 5, LUE: 5, RLE: 5, LLE: 5 Eye Response: (4) open spontaneously Motor Response: (6) obeys commands Verbal Response: (5) oriented [place] Total: 15 Psychiatric exam: Present: normal affect, normal mood Skin exam: Present: warm, dry, intact, normal color. Absent: rash Course Vital Signs 10/31/22 15:47 Temperature 98.6 F Pulse Rate 80 Respiratory 20 Rate Blood Pressure 119/82 Medical Decision Making - Medical Decision Making Was pt. sent in by a medical professional or institution (, PA, VETERINARY LABORATORY TECHNICIAN, urgent care, hospital, or retirement...) When possible be specific @ -No Did you speak to anyone other than the patient for history (EMS, parent, family, police, friend...)? What history was obtained from this source @ -No Did you review nursing and triage notes (agree or disagree)? Why? @ -I reviewed and agree with nursing and triage notes Were old charts reviewed (outside hosp., previous admission, EMS record, old EKG, old radiological studies, urgent care reports/EKG's, retirement records)? Report findings @ -No old charts were reviewed Differential Diagnosis (chest pain, altered mental status, abdominal pain women, abdominal pain men, vaginal bleeding, weakness, fever, dyspnea, syncope, headache, dizziness, GI bleed, back pain, seizure, CVA, palpatations, mental he alth, musculoskeletal)? @ -Differential CVA Ischemic stroke, hemorrhagic stroke, brain tumor, atypical migraine, Wernicke's encephalopathy, seizure, multiple sclerosis, meningitis, encephalitis, hypoglycemia, Guillain-Paul, electrolytes disturbance, myasthenia gravis.... This is not meant to be an all-inclusive list EKG interpreted by me (3pts min.). @ -As above X-rays interpreted by me (1pt min.). @ -None done CT interpreted by me (1pt min.). @ -CT shows no acute intracranial process U/S interpreted by me (1pt. min.). @ -None done What testing was considered but not performed or refused? (CT, X-rays, U/S, labs)? Why? @ -None What meds were considered but not given or refused? Why? @ -None Did you discuss the management of the patient with other professionals (professionals i.e. , PA, VETERINARY LABORATORY TECHNICIAN, lab, RT, psych nurse, social insurance analyst, radiographer cardiac catheterization, teacher, licensed mortgage loan officer, case fitter)? Give summary @ -No Was smoking cessation discussed for >3mins.? @ -No Was critical care preformed (if so, how long)? @ -No Were there social determinants of health that impacted care today? How? (Homelessness, low income, unemployed, alcoholism, drug addiction, transportation, low edu. Level, literacy, decrease access to med. care, skilled nursing, rehab)? @ -No Was there de-escalation of care discussed even if they declined (Discuss DNR or withdrawal of care, Hospice)? DNR status @ -No What co-morbidities impacted this encounter? (DM, HTN, Smoking, COPD, CAD, Cancer, CVA, ARF, Chemo, Hep., AIDS, mental health diagnosis, sleep apnea, morbid obesity)? @ -None Was patient admitted / discharged? Hospital course, mention meds given and route, prescriptions, significant lab abnormalities, going to OR and other pertinent info. @ -42-year-old female presenting with chief complaint of right arm and neck pain. Ongoing for the last 3-4 days. No injury or trauma. On physical examination there are no focal neurological deficits, GCS 15. CT shows no acute intracranial process. Patient is instructed to follow-up with her PCP. Patient also states that she has been out of her Depakote for 2 weeks, she is provided with a refill instructed to follow-up with her provider. Follow-up with PCP. Report back to ER with any new or worsening symptoms. Discussed return parameters and answered all questions. Patient conveyed verbal understanding and agreed to the plan. I discussed this case in detail with my attending Dr. Graham Undiagnosed new problem with uncertain prognosis? @ -No Drug Therapy requiring intensive monitoring for toxicity (Heparin, Nitro, Insulin, Cardizem)? @ -No Were any procedures done? @ -No Diagnosis/symptom? @ -Paresthesias Acute, or Chronic, or Acute on Chronic? @ -acute Uncomplicated (without systemic symptoms) or Complicated (systemic symptoms)? @ -Uncomplicated Side effects of treatment? @ -No Exacerbation, Progression, or Severe Exacerbation? @ -No Poses a threat to life or bodily function? How? (Chest pain, [place], [place], pneumonia, PE, COPD, DKA, ARF, appy, cholecystitis, CVA, Diverticulitis, Homicidal, Suicidal, threat to staff... and all critical care pts) @ -Low likelihood Disposition Clinical Impression: Radiculopathy Disposition: HOME SELF-CARE Condition: Good Instructions (If sedation given, give patient instructions): Cervical Radiculopathy (ED) Additional Instructions: Follow-up with PCP. Report back to ER with any new or worsening symptoms. Take medication as prescribed. Prescriptions: Divalproex [Depakote] 500 mg PO DAILY #30 tab methylPREDNISolone Dose Pack [Medrol Dose Pack] 4 mg PO DIRECTED #1 packet Is patient prescribed a controlled substance at d/c from ED?: No Referrals: Melchor Macdonald MD [Primary Care Provider] - 1-2 days Time of Disposition: 17:23
== END 2022-10-31 17:50 | disposition home or self-care (01) ==
LOC: EC 15:36
DX: M54.12 Radiculopathy, cervical region (principal); E11.9 Type 2 diabetes mellitus without complications; G40.909 Epilepsy, unspecified, not intractable, without status epilepticus; F17.200 Nicotine dependence, unspecified, uncomplicated; F12.90 Cannabis use, unspecified, uncomplicated; Z79.899 Other long term (current) drug therapy; Z88.0 Allergy status to penicillin; Z88.1 Allergy status to other antibiotic agents; Z88.2 Allergy status to sulfonamides; Z88.4 Allergy status to anesthetic agent; Z88.7 Allergy status to serum and vaccine; Z91.018 Allergy to other foods; Z91.041 Radiographic dye allergy status
CPT/HCPCS: 72125; 70450; 99283; 96372; J1100

== ENCOUNTER 2023-05-08 22:56 | Emergency (ER) | payer OTHER ==
[2023-05-08 23:19] VITALS: BP 156/99; PULSE 99; RESP 18; TEMP 98.1
--- NOTE | 2023-05-08 23:33 | ED ---
ENT HPI - General Chief complaint: Dental/Oral Stated complaint: tooth pain Time Seen by Provider: 05/08/23 23:32 Source: patient, family, RN notes reviewed Mode of arrival: ambulatory Limitations: no limitations - History of Present Illness Initial comments: Patient is a 42-year-old female presenting to ER with chief complaint of dental pain. Patient states about 3 days ago she broke one of her front teeth and is experiencing pain now. Patient also is stating that she believes 2 of her molars are impacted and causing her pain. Patient denies any fevers, chills, chest pain, shortness of breath, difficulty swallowing, abdominal pain, peripheral edema. Patient does not regularly follow-up with a dentist. - Related Data Home Medications Medication Instructions Recorded Confirmed Divalproex ER [Depakote ER] 500 mg PO DAILY 10/31/22 10/31/22 Previous Rx's Medication Instructions Recorded Divalproex [Depakote] 500 mg PO DAILY #30 tab 10/31/22 methylPREDNISolone Dose Pack 4 mg PO DIRECTED #1 packet 10/31/22 [Medrol Dose Pack] Clindamycin [Cleocin] 150 mg PO Q6H #40 capsule 05/08/23 Allergies Allergy/AdvReac Type Severity Reaction Status Date / Time Penicillins Allergy Unknown Dyspnea Verified 10/31/22 16:24 cephalexin monohydrate Allergy Unknown Verified 10/31/22 16:24 [From Keflex] Childhood lidocaine Allergy Rash/Hives/Shortness Verified 10/31/22 16:24 of Breath Sulfa (Sulfonamide Allergy Unknown Verified 10/31/22 16:24 Antibiotics) Childhood tetanus toxoid, adsorbed Allergy Unknown Verified 10/31/22 16:24 tomato Allergy Unknown Verified 10/31/22 16:24 barium iodide [Barium Iodide] AdvReac Nausea & Verified 10/31/22 16:24 Vomiting Review of Systems ROS Statement: Those systems with pertinent positive or pertinent negative responses have been documented in the HPI. ROS Other: All systems not noted in ROS Statement are negative. Past Medical History Past Medical History: Diabetes Mellitus, Seizure Disorder Additional Past Medical History / Comment(s): MS, back pain DDD HERNIATED DISK , FACIAL FX History of Any Multi-Drug Resistant Organisms: None Reported Past Surgical History: Adenoidectomy, Section, Cholecystectomy, Orthopedic Surgery, Tonsillectomy, Tubal Ligation Past Psychological History: Anxiety, Depression Smoking Status: Current every day smoker Past Alcohol Use History: None Reported Past Drug Use History: Marijuana General Exam Limitations: no limitations General appearance: alert, in no apparent distress Head exam: Present: atraumatic, normocephalic, normal inspection Eye exam: Present: normal appearance, PERRL, EOMI. Absent: scleral icterus, conjunctival injection, periorbital swelling ENT exam: Present: mucous membranes moist, other (Multiple dental caries, fractured incisor left. No drainable abscess Minor surrounding erythema) Neck exam: Present: normal inspection. Absent: tenderness, meningismus, lymphadenopathy Respiratory exam: Present: normal lung sounds bilaterally. Absent: respiratory distress, wheezes, rales, rhonchi, stridor Cardiovascular Exam: Present: regular rate, normal rhythm, normal heart sounds. Absent: systolic murmur, diastolic murmur, rubs, gallop, clicks Neurological exam: Present: alert, oriented X3, CN II-XII intact Psychiatric exam: Present: normal affect, normal mood Skin exam: Present: warm, dry, intact, normal color. Absent: rash Course Vital Signs 05/08/23 23:02 Temperature 98.1 F Pulse Rate 99 Respiratory 18 Rate Blood Pressure 156/99 O2 Sat by Pulse 100 Oximetry Medical Decision Making - Medical Decision Making Was pt. sent in by a medical professional or institution (JUANI Durand, SERVICE ORDER EXPEDITER, urgent care, hospital, or [place] [facility] facility...) When possible be specific @ -No Did you speak to anyone other than the patient for history (EMS, parent, family, police, friend...)? What history was obtained from this source @ -No Did you review nursing and triage notes (agree or disagree)? Why? @ -I reviewed and agree with nursing and triage notes Were old charts reviewed (outside hosp., previous admission, EMS record, old EKG, old radiological studies, urgent care reports/EKG's, [place] [facility] facility records)? Report findings @ -No old charts were reviewed Differential Diagnosis (chest pain, altered mental status, abdominal pain women, abdominal pain men, vaginal bleeding, weakness, fever, dyspnea, syncope, headache, dizziness, GI bleed, back pain, seizure, CVA, palpatations, mental health, musculoskeletal)? @ -Dental carry, dental abscess, Mc's, broken tooth this list, to be all-inclusive EKG interpreted by me (3pts min.). @ -None X-rays interpreted by me (1pt min.). @ -None done CT interpreted by me (1pt min.). @ -None done U/S interpreted by me (1pt. min.). @ -None done What testing was considered but not performed or refused? (CT, X-rays, U/S, labs)? Why? @ -None What meds were considered but not given or refused? Why? @ -None Did you discuss the management of the patient with other professionals (professionals i.e. , PA, SERVICE ORDER EXPEDITER, lab, RT, psych nurse, social work assistant, agronomy instructor, teacher, hotel security officer, manager of case management)? Give summary @ -No Was smoking cessation discussed for >3mins.? @ -I discussed smoking cessation for greater than 3 minutes. The risk of smoking were discussed with the patient including but not limited to risks of cancer, stroke, coronary artery disease and COPD. Also discussed with patient were multiple methods of quitting smoking. Lastly we discussed the financial cost of smoking. Was critical care preformed (if so, how long)? @ -No Were there social determinants of health that impacted care today? How? (Homelessness, low income, unemployed, alcoholism, drug addiction, transportation, low edu. Level, literacy, decrease access to med. care, detention, rehab)? @ -Decreased access to medical care patient does not regularly follow-up with dentist. Was there de-escalation of care discussed even if they declined (Discuss DNR or withdrawal of care, Hospice)? DNR status @ -No What co-morbidities impacted this encounter? (DM, HTN, Smoking, COPD, CAD, Cancer, CVA, ARF, Chemo, Hep., AIDS, mental health diagnosis, sleep apnea, morbid obesity)? @ -Smoker Was patient admitted / discharged? Hospital course, mention meds given and route, prescriptions, significant lab abnormalities, going to OR and other pertinent info. @ -Discharge. Patient is a 42-year-old female presented to ER with chief complaint of dental pain. History and physical exam were completed. Vitals stable. Patient in no signs of acute distress and nontoxic-appearing. Patient has multiple dental caries and a fractured left incisor. No drainable abscess. Patient prescribed clindamycin. Patient discharged with Tylenol threes starter pack. I advised patient to follow-up with dentist in the next 1 to 2 days. I discussed smoking cessation for greater than 3 minutes. The risk of smoking were discussed with the patient including but not limited to risks of cancer, stroke, coronary artery disease and COPD. Also discussed with patient were multiple methods of quitting smoking. Lastly we discussed the financial cost of smoking. Return parameters were discussed. Patient be discharged stable condition with follow-up to dentist. Referrals given. Patient expressed understanding and agreement with care plan. Undiagnosed new problem with uncertain prognosis? @ -No Drug Therapy requiring intensive monitoring for toxicity (Heparin, Nitro, Insulin, Cardizem)? @ -No Were any procedures done? @ -No Diagnosis/symptom? @ -Fractured tooth Acute, or Chronic, or Acute on Chronic? @ -Acute Uncomplicated (without systemic symptoms) or Complicated (systemic symptoms)? @ -Uncomplicated Side effects of treatment? @ -No Exacerbation, Progression, or Severe Exacerbation? @ -No Poses a threat to life or bodily function? How? (Chest pain, [place], [place], pneumonia, PE, COPD, DKA, ARF, appy, cholecystitis, CVA, Diverticulitis, Homicidal, Suicidal, threat to staff... and all critical care pts) @ -No Disposition Clinical Impression: Dental caries, Fracture of tooth, Impacted molar Disposition: HOME SELF-CARE Condition: Stable Instructions (If sedation given, give patient instructions): Toothache (ED) Additional Instructions: Follow-up with dentist in the next 1 to 2 days. Please complete full course of clindamycin. Return to the ER for any new or worsening symptoms. Prescriptions: Clindamycin [Cleocin] 150 mg PO Q6H #40 capsule Is patient prescribed a controlled substance at d/c from ED?: No Referrals: Melchor Macdonald MD [Primary Care Provider] - 1-2 days Dennis Harden DDS [STAFF PHYSICIAN] - 1-2 days Luisa Deal DDS [STAFF PHYSICIAN] - 1-2 days Time of Disposition: 23:33
[2023-05-08] MEDS: ACET/COD 300 MG/30 MG STARTER PACK 6 TAB BTL PO STA (23:54)
== END 2023-05-08 23:55 | disposition home or self-care (01) ==
LOC: EC 22:56
DX: K02.9 Dental caries, unspecified (principal); K03.81 Cracked tooth; E11.9 Type 2 diabetes mellitus without complications; F41.9 Anxiety disorder, unspecified; F32.A Depression, unspecified; F17.200 Nicotine dependence, unspecified, uncomplicated; F12.90 Cannabis use, unspecified, uncomplicated; Z79.899 Other long term (current) drug therapy; Z88.0 Allergy status to penicillin; Z88.2 Allergy status to sulfonamides; Z88.1 Allergy status to other antibiotic agents; Z91.018 Allergy to other foods; Z88.7 Allergy status to serum and vaccine
CPT/HCPCS: 99282; 99406

== ENCOUNTER 2023-07-23 20:12 | Emergency (ER) | payer OTHER ==
--- NOTE | 2023-07-23 20:23 | ED ---
General Adult HPI - General Source: RN notes reviewed <Elio Guillen - Last Filed: 07/23/23 20:23> <Brandon Ash - Last Filed: 07/24/23 03:47> - General Stated complaint: Chest Pain Time Seen by Provider: 07/23/23 20:15 - History of Present Illness Initial comments: 42-year-old female presents to the ED with complaint of chest pain. Patient reports onset of chest pain 2 days ago. Pain affects middle of her chest. Describes it as sharp in nature. Does not radiate. Reports that pain worsening over the last few hours. Associated shortness of breath. Prior cigarette smoker however is now vaping. No control use. (Elio Guillen) Patient is a 42-year-old female presents emergency department complaining of chest pain. Has been ongoing for multiple days. Comes and goes. Describes it as a burning, sharp sensation midline of her lower sternum. Improves with certain movements. Denies any significant cardiac history for herself. Does run in the family. Denies any shortness of breath with this, other than when the pain is severe. No pleuritic pain.. Denies any fevers or cough. No nausea or vomiting. No diaphoresis. No radiation of the pain. Presents for further evaluation at this time. Originally seen as a quick note. I evaluated the patient when she was placed in a room. (Brandon Ash) - Related Data Home Medications Medication Instructions Recorded Confirmed Divalproex ER [Depakote ER] 500 mg PO DAILY 10/31/22 10/31/22 Previous Rx's Medication Instructions Recorded Divalproex [Depakote] 500 mg PO DAILY #30 tab 10/31/22 methylPREDNISolone Dose Pack 4 mg PO DIRECTED #1 packet 10/31/22 [Medrol Dose Pack] Clindamycin [Cleocin] 150 mg PO Q6H #40 capsule 05/08/23 Allergies Allergy/AdvReac Type Severity Reaction Status Date / Time Penicillins Allergy Unknown Dyspnea Verified 07/23/23 20:23 cephalexin monohydrate Allergy Unknown Verified 07/23/23 20:23 [From Keflex] Childhood lidocaine Allergy Rash/Hives/Shortness Verified 07/23/23 20:23 of Breath Sulfa (Sulfonamide Allergy Unknown Verified 07/23/23 20:23 Antibiotics) Childhood tetanus toxoid, adsorbed Allergy Unknown Verified 07/23/23 20:23 tomato Allergy Unknown Verified 07/23/23 20:23 barium iodide [Barium Iodide] AdvReac Nausea & Verified 07/23/23 20:23 Vomiting Review of Systems ROS Other: All systems not noted in ROS Statement are negative. <Elio Guillen - Last Filed: 07/23/23 20:23> ROS Other: All systems not noted in ROS Statement are negative. <Brandon Ash - Last Filed: 07/24/23 03:47> ROS Statement: Those systems with pertinent positive or pertinent negative responses have been documented in the HPI. Review of Systems: CONST: Denies fever EYES: Denies blurry vision ENT: Denies nasal congestion C/V: Endorses chest pain RESP: Denies shortness of breath GI: Denies abdominal pain : Denies dysuria SKIN: Denies rash. MSK: Denies joint pain. NEURO: Denies headache (Brandon Ash) Past Medical History Past Medical History: Diabetes Mellitus, Seizure Disorder Additional Past Medical History / Comment(s): MS, back pain DDD HERNIATED DISK , FACIAL FX History of Any Multi-Drug Resistant Organisms: None Reported Past Surgical History: Adenoidectomy, Section, Cholecystectomy, Orthopedic Surgery, Tonsillectomy, Tubal Ligation Past Psychological History: Anxiety, Depression Smoking Status: Current every day smoker Past Alcohol Use History: None Reported Past Drug Use History: Marijuana <Elio Guillen - Last Filed: 07/23/23 20:23> General Exam <Elio Guillen - Last Filed: 07/23/23 20:23> <Brandon Ash - Last Filed: 07/24/23 03:47> - General Exam Comments Initial Comments: Visual Physical Exam Vital signs reviewed General: Well-appearing, nontoxic, no acute distress. Head: Normocephalic, atraumatic Eyes: PERRLA, EOMI ENT: Airway patent Chest: Nonlabored breathing Skin: No visual rash, normal skin tone Neuro: Alert and oriented 3 Musculoskeletal: No gross abnormalities (Elio Guillen) General: Appears in no acute distress. HEAD: Normal with no signs of head trauma. EYES: PERRLA, EOMI, conjunctiva normal, no discharge. ENT: Hearing grossly intact, normal oropharynx. RESPIRATORY: Clear breath sounds bilaterally. No wheezes, rales, or rhonchi. C/V: Regular rate and rhythm. S1 and S2 auscultated, no edema, peripheral pulses 2+ and intact throughout chest pain reproducible on palpation of the lower sternum. Also worse with stretching improves with certain stretches. ABD: Abd is soft, nontender, nondistended EXT: Normal range of motion, no obvious deformity SKIN: No rashes or lesions observed on exposed skin. NEURO: Alert and oriented x 4. No focal deficits. (Brandno Ash) Course Vital Signs 07/23/23 07/23/23 07/24/23 20:20 22:29 00:16 Temperature 97.7 F 97.4 F L Pulse Rate 80 62 74 Respiratory 18 20 12 Rate Blood Pressure 104/68 120/68 114/78 O2 Sat by Pulse 100 98 100 Oximetry Medical Decision Making <Elio Guillen - Last Filed: 07/23/23 20:23> - Lab Data Result diagrams: 07/23/23 21:23 07/23/23 21:23 - EKG Data -: EKG Interpreted by Me <Brandon Ash - Last Filed: 07/24/23 03:47> - Medical Decision Making Quicknote portion performed. Signed Elio Guillen PA-C (Elio Guillen) Was pt. sent in by a medical professional or institution (JUANI Durand, DESIGN PRINTING MACHINE SET UP OPERATOR, urgent care, hospital, or assisted...) When possible be specific @ -No Did you speak to anyone other than the patient for history (EMS, parent, family, police, friend...)? What history was obtained from this source @ -No Did you review nursing and triage notes (agree or disagree)? Why? @ -I reviewed and agree with nursing and triage notes Were old charts reviewed (outside hosp., previous admission, EMS record, old EKG, old radiological studies, urgent care reports/EKG's, assisted records)? Report findings @ -Old charts reviewed Differential Diagnosis (chest pain, altered mental status, abdominal pain women, abdominal pain men, vaginal bleeding, weakness, fever, dyspnea, syncope, headache, dizziness, GI bleed, back pain, seizure, CVA, palpatations, mental health, musculoskeletal)? @ -Differential Chest Pain: Stable Angina, Unstable Angina, STEMI, NSTEMI Aortic Dissection, Pneumothorax, Musculoskeletal, Esophageal Spasm GERD, Cholecystitis, Pancreatitis, Zoster, this is not meant to be an all-inclusive list. EKG interpreted by me (3pts min.). @ -As above X-rays interpreted by me (1pt min.). @ -Chest x-ray reveals no obvious acute cardiopulmonary process. CT interpreted by me (1pt min.). @ -None done U/S interpreted by me (1pt. min.). @ -None done What testing was considered but not performed or refused? (CT, X-rays, U/S, labs)? Why? @ -None What meds were considered but not given or refused? Why? @ -None Did you discuss the management of the patient with other professionals (professionals i.e. , PA, DESIGN PRINTING MACHINE SET UP OPERATOR, lab, RT, psych nurse, social service technician, medical practice administrator, teacher, police commanding officer, director case)? Give summary @ -No Was smoking cessation discussed for >3mins.? @ -No Was critical care preformed (if so, how long)? @ -No Were there social determinants of health that impacted care today? How? (Homelessness, low income, unemployed, alcoholism, drug addiction, transportation, low edu. Level, literacy, decrease access to med. care, group home, rehab)? @ -No Was there de-escalation of care discussed even if they declined (Discuss DNR or withdrawal of care, Hospice)? DNR status @ -No What co-morbidities impacted this encounter? (DM, HTN, Smoking, COPD, CAD, Cancer, CVA, ARF, Chemo, Hep., AIDS, mental health diagnosis, sleep apnea, morbid obesity)? @ -None Was patient admitted / discharged? Hospital course, mention meds given and route, prescriptions, significant lab abnormalities, going to OR and other per tinent info. @ -Patient presents for what appears to be chest wall pain and atypical chest pain. Workup started as a quick note. Labs already returned and remarkable for mild hypokalemia 3.4 which will be replenished. Troponin is undetectable. Remainder the workup unremarkable. EKG shows no signs of acute ischemia. Chest x-ray unremarkable. Vital signs are within acceptable limits. I discussed results with the patient, we agreed to obtain a second troponin as she would like to go home if possible. I believe this is reasonable. We will administer her a dose of potassium as well as Maalox and Toradol at this time as it does seem to be mostly chest wall pain. She does have a history of acid reflux as well. Patient was in agreement this plan. Kervin troponin remains undetectable. On reevaluation, patient is feeling improved. We discussed the results. She would still like to be discharged home at this time which I think is reasonable. Strict return precautions discussed.Heart score is low. I instructed the patient to follow up with their PCP in the next 1-3 days. I explained that the patient should return to the emergency department if they experience any worsening symptoms. Strict return precautions were discussed with the patient. The patient expressed understanding of these instructions. I answered all questions that the patient had. The patient was discharged home in good condition with their prescriptions and follow up information. Undiagnosed new problem with uncertain prognosis? @ -No Drug Therapy requiring intensive monitoring for toxicity (Heparin, Nitro, Insulin, Cardizem)? @ -No Were any procedures done? @ -No Diagnosis/symptom? @ -Atypical chest pain, chest wall pain Acute, or Chronic, or Acute on Chronic? @ -Acute Uncomplicated (without systemic symptoms) or Complicated (systemic symptoms)? @ -Uncomplicated Side effects of treatment? @ -None Exacerbation, Progression, or Severe Exacerbation] @ -No Poses a threat to life or bodily function? @ -Unlikely (Brandon Ash) - Lab Data Lab Results 07/23/23 07/23/23 07/23/23 Range/Units 20:48 21:23 21:23 WBC 5.1 (3.8-10.6) k/uL RBC 4.25 (3.80-5.40) m/uL Hgb 13.3 (11.4-16.0) gm/dL Hct 40.5 (34.0-46.0) % MCV 95.2 (80.0-100.0) fL MCH 31.2 (25.0-35.0) pg MCHC 32.8 (31.0-37.0) g/dL RDW 13.4 (11.5-15.5) % Plt Count 205 (150-450) k/uL MPV 8.1 Neutrophils % 38 % Lymphocytes % 46 % Monocytes % 9 % Eosinophils % 4 % Basophils % 1 % Neutrophils # 1.9 (1.3-7.7) k/uL Lymphocytes # 2.3 (1.0-4.8) k/uL Monocytes # 0.5 (0-1.0) k/uL Eosinophils # 0.2 (0-0.7) k/uL Basophils # 0.1 (0-0.2) k/uL PT 10.5 (10.0-12.5) sec INR 0.9 (<1.2) APTT 26.3 (22.0-30.0) sec Sodium (137-145) mmol/L Potassium (3.5-5.1) mmol/L Chloride (98-107) mmol/L Carbon Dioxide (22-30) mmol/L Anion Gap mmol/L BUN (7-17) mg/dL Creatinine (0.52-1.04) mg/dL Est GFR (CKD-EPI)AfAm (>60 ml/min/1.73 sqM) Est GFR (CKD-EPI)NonAf (>60 ml/min/1.73 sqM) Glucose (74-99) mg/dL Calcium (8.4-10.2) mg/dL Magnesium (1.6-2.3) mg/dL Total Bilirubin (0.2-1.3) mg/dL AST (14-36) U/L ALT (4-34) U/L Alkaline Phosphatase (38-126) U/L Troponin I (0.000-0.034) ng/mL Total Protein (6.3-8.2) g/dL Albumin (3.5-5.0) g/dL Urine Color Light Yellow Urine Appearance Clear (Clear) Urine pH 6.5 (5.0-8.0) Ur Specific [place] 1.021 (1.001-1.035) Urine Protein Negative (Negative) Urine Glucose (UA) Negative (Negative) Urine Ketones Negative (Negative) Urine Blood Negative (Negative) Urine Nitrite Negative (Negative) Urine Bilirubin Negative (Negative) Urine Urobilinogen 2.0 (<2.0) mg/dL Ur Leukocyte Esterase Small H (Negative) Urine RBC 1 (0-5) /hpf Urine WBC 6 H (0-5) /hpf Ur Squamous Epith Cells 1 (0-4) /hpf Urine Bacteria Rare H (None) /hpf Urine Mucus Rare H (None) /hpf 04/07/23/23 07/23/23 Range/Units 21:23 21:23 23:20 WBC (3.8-10.6) k/uL RBC (3.80-5.40) m/uL Hgb (11.4-16.0) gm/dL Hct (34.0-46.0) % MCV (80.0-100.0) fL MCH (25.0-35.0) pg MCHC (31.0-37.0) g/dL RDW (11.5-15.5) % Plt Count (150-450) k/uL MPV Neutrophils % % Lymphocytes % % Monocytes % % Eosinophils % % Basophils % % Neutrophils # (1.3-7.7) k/uL Lymphocytes # (1.0-4.8) k/uL Monocytes # (0-1.0) k/uL Eosinophils # (0-0.7) k/uL Basophils # (0-0.2) k/uL PT (10.0-12.5) sec INR (<1.2) APTT (22.0-30.0) sec Sodium 139 (137-145) mmol/L Potassium 3.4 L (3.5-5.1) mmol/L Chloride 108 H (98-107) mmol/L Carbon Dioxide 22 (22-30) mmol/L Anion Gap 9 mmol/L BUN 16 (7-17) mg/dL Creatinine 0.61 (0.52-1.04) mg/dL Est GFR (CKD-EPI)AfAm >90 (>60 ml/min/1.73 sqM) Est GFR (CKD-EPI)NonAf >90 (>60 ml/min/1.73 sqM) Glucose 100 H (74-99) mg/dL Calcium 9.0 (8.4-10.2) mg/dL Magnesium 2.0 (1.6-2.3) mg/dL Total Bilirubin 0.3 (0.2-1.3) mg/dL AST 20 (14-36) U/L ALT 13 (4-34) U/L Alkaline Phosphatase 60 (38-126) U/L Troponin I <0.012 <0.012 (0.000-0.034) ng/mL Total Protein 7.0 (6.3-8.2) g/dL Albumin 4.4 (3.5-5.0) g/dL Urine Color Urine Appearance (Clear) Urine pH (5.0-8.0) Ur Specific [place] (1.001-1.035) Urine Protein (Negative) Urine Glucose (UA) (Negative) Urine Ketones (Negative) Urine Blood (Negative) Urine Nitrite (Negative) Urine Bilirubin (Negative) Urine Urobilinogen (<2.0) mg/dL Ur Leukocyte Esterase (Negative) Urine RBC (0-5) /hpf Urine WBC (0-5) /hpf Ur Squamous Epith Cells (0-4) /hpf Urine Bacteria (None) /hpf Urine Mucus (None) /hpf - EKG Data EKG Comments: 12-lead Electrocardiogram Interpretation Note EKG was reviewed and interpreted by myself. 12-lead ECG performed at 2032 is interpreted by me as revealing normal sinus rhythm at a rate of 65 beats per minute. [place] is normal. [place] interval is 111 ms, QRS duration is 77 ms, QTc is 427 ms.. There were no ST or T wave abnormalities to suggest myocardial ischemia or injury. R wave progression across the precordium was satisfactory. By my interpretation this EKG is non-diagnostic for acute ischemia. (Brandon Ash) Disposition <Elio Guillen - Last Filed: 07/23/23 20:23> Is patient prescribed a controlled substance at d/c from ED?: No Time of Disposition: 00:07 <Brandon Ash - Last Filed: 07/24/23 03:47> Clinical Impression: Atypical chest pain, Chest wall pain Disposition: HOME SELF-CARE Condition: Good Instructions (If sedation given, give patient instructions): Chest Wall Pain (ED) Referrals: None,Stated [Primary Care Provider] - 1-2 days Forms: Area PCPs
[2023-07-23 21:12] LABS: Appearance,Urine Clear (Clear); Bacteria,Urine Rare /hpf; Bilirubin,Urine Negative (Negative); Blood,Urine Negative (Negative); Color,Urine Light Yellow; Glucose,Urine (UA) Negative (Negative); Ketones,Urine Negative (Negative); Leukocyte Esterase,Urine Small (Negative); Mucus,Urine Rare /hpf; Nitrite,Urine Negative (Negative); PH, Urine 6.5 (5.0-8.0); Protein,Urine Negative (Negative); RBC,Urine 1 /hpf (0-5); Specific Gravity,Urine 1.021 (1.001-1.035); Squamous Epithelial Cell,Urine 1 /hpf (0-4); WBC,Urine 6 /hpf (0-5)
--- NOTE | 2023-07-23 21:39 | XR ---
EXAMINATION TYPE: XR chest 2V DATE OF EXAM: 07/23/2023 9:36 PM CLINICAL INDICATION:Female, 42 years old with history of Chest Pain; [facility] COMPARISON: Chest radiographs from 03/22/2020 TECHNIQUE: XR chest 2V Frontal and lateral views of the chest. FINDINGS: Lungs/Pleura: There is no evidence of pleural effusion, focal consolidation, or pneumothorax. Pulmonary vascularity: Unremarkable. Heart/mediastinum: Cardiomediastinal silhouette is unremarkable. Musculoskeletal: No acute osseous pathology. IMPRESSION: No acute cardiopulmonary disease/process.
[2023-07-23 21:40] LABS: Basophils # (A) 0.1 k/uL (0-0.2); Basophils % (A) 1 %; Eosinophils # (A) 0.2 k/uL (0-0.7); Eosinophils % (A) 4 %; HCT 40.5 % (34.0-46.0); HGB 13.3 gm/dL (11.4-16.0); Lymphocytes # (A) 2.3 k/uL (1.0-4.8); Lymphocytes % (A) 46 %; MCH 31.2 pg (25.0-35.0); MCHC 32.8 g/dL (31.0-37.0); MCV 95.2 fL (80.0-100.0); Mean Platelet Volume 8.1; Monocytes # (A) 0.5 k/uL (0-1.0); Monocytes % (A) 9 %; Neutrophils # (A) 1.9 k/uL (1.3-7.7); Neutrophils % (A) 38 %; Platelet Count 205 k/uL (150-450); RBC 4.25 m/uL (3.80-5.40); RDW 13.4 % (11.5-15.5); WBC 5.1 k/uL (3.8-10.6)
[2023-07-23 21:45] LABS: ALT 13 U/L (4-34); AST 20 U/L (14-36); African American GFR (CKD) >90 (>60 ml/min/1.73 sqM); Albumin 4.4 g/dL (3.5-5.0); Alkaline Phosphatase 60 U/L (38-126); Anion Gap 9 mmol/L; Blood Urea Nitrogen 16 mg/dL (7-17); Carbon Dioxide 22 mmol/L (22-30); Chloride 108 mmol/L (98-107); Glucose 100 mg/dL (74-99); Non-African American GFR(CKD) >90 (>60 ml/min/1.73 sqM); Potassium 3.4 mmol/L (3.5-5.1); Sodium 139 mmol/L (137-145); Total Bilirubin 0.3 mg/dL (0.2-1.3)
[2023-07-23 21:46] LABS: INR 0.9 (<1.2); Partial Thromboplastin Time 26.3 sec (22.0-30.0); Prothrombin Time 10.5 sec (10.0-12.5)
[2023-07-23] MEDS: MAG HYDROX/AL HYDROX/SIMETH 30 ML, HYOSCYAMINE ELIXIR 10 ML PO STA (22:30)
[2023-07-23] MEDS: KETOROLAC 15 MG/ML 1 ML VIAL IVP STA (22:30)
[2023-07-23] MEDS: POTASSIUM CHLORIDE ER 20 MEQ TAB.ER PO STA (22:30)
[2023-07-24 00:48] VITALS: BP 114/78; PULSE 74; RESP 12; TEMP 97.4
== END 2023-07-24 00:16 | disposition home or self-care (01) ==
LOC: EC 20:12
DX: R07.89 Other chest pain (principal); E87.6 Hypokalemia; F17.290 Nicotine dependence, other tobacco product, uncomplicated; Z88.0 Allergy status to penicillin; Z88.1 Allergy status to other antibiotic agents; Z88.2 Allergy status to sulfonamides; Z88.7 Allergy status to serum and vaccine; Z88.8 Allergy status to other drugs, medicaments and biological substances; Z91.018 Allergy to other foods
CPT/HCPCS: 36415; 93005; 80053; 83735; 84484; 85025; 85610; 85730; 81001; 71046; 99285; 96374; J1885

== ENCOUNTER 2024-06-23 19:21 | Emergency (ER) | payer OTHER ==
--- NOTE | 2024-06-23 20:09 | ED ---
Abdominal Pain HPI - General Stated Complaint: Abd Pain,Excessive Vaginal Bleeding Time Seen by Provider: 06/23/24 20:07 Source: patient - History of Present Illness Initial Comments: 43-year-old female presenting for lower abdominal pain x 2 days with associated heavy vaginal bleeding. Describes pain as menstrual period cramps. States she has not had a menstrual period in 3 years status post left ovary removal. Denies urinary symptoms, nausea, vomiting, or diarrhea. States her pain is well-controlled right now however she is ultimately here to receive a work note. Past surgical history includes , cholecystectomy, and tubal ligation. - Related Data Home Medications Medication Instructions Recorded Confirmed Divalproex ER [Depakote ER] 500 mg PO DAILY 10/31/22 10/31/22 Previous Rx's Medication Instructions Recorded Divalproex [Depakote] 500 mg PO DAILY #30 tab 10/31/22 methylPREDNISolone Dose Pack 4 mg PO DIRECTED #1 packet 10/31/22 [Medrol Dose Pack] Clindamycin [Cleocin] 150 mg PO Q6H #40 capsule 05/08/23 Allergies Allergy/AdvReac Type Severity Reaction Status Date / Time Penicillins Allergy Unknown Dyspnea Verified 06/23/24 21:14 cephalexin monohydrate Allergy Unknown Verified 06/23/24 21:14 [From Keflex] Childhood lidocaine Allergy Rash/Hives/Shortness Verified 06/23/24 21:14 of Breath Sulfa (Sulfonamide Allergy Unknown Verified 06/23/24 21:14 Antibiotics) Childhood tetanus toxoid, adsorbed Allergy Unknown Verified 06/23/24 21:14 tomato Allergy Unknown Verified 06/23/24 21:14 barium iodide [Barium Iodide] AdvReac Nausea & Verified 06/23/24 21:14 Vomiting Review of Systems ROS Statement: Those systems with pertinent positive or pertinent negative responses have been documented in the HPI. ROS Other: All systems not noted in ROS Statement are negative. Past Medical History Past Medical History: Diabetes Mellitus, Seizure Disorder Additional Past Medical History / Comment(s): MS, back pain DDD HERNIATED DISK , FACIAL FX History of Any Multi-Drug Resistant Organisms: None Reported Past Surgical History: Adenoidectomy, Section, Cholecystectomy, Orthopedic Surgery, Tonsillectomy, Tubal Ligation Past Psychological History: Anxiety, Depression Smoking Status: Current every day smoker Past Alcohol Use History: None Reported Past Drug Use History: Marijuana General Exam - General Exam Comments Initial Comments: Visual Physical Exam General: Well-appearing, nontoxic, no acute distress. Head: Normocephalic, atraumatic Eyes: PERRLA, EOMI ENT: Airway patent Chest: Nonlabored breathing Skin: No visual rash, normal skin tone Neuro: Alert and oriented 3 Musculoskeletal: No gross abnormalities General appearance: alert, in no apparent distress Head exam: Present: atraumatic, normocephalic, normal inspection Respiratory exam: Present: normal lung sounds bilaterally. Absent: respiratory distress, wheezes, rales, rhonchi, stridor Cardiovascular Exam: Present: regular rate, normal rhythm, normal heart sounds. Absent: systolic murmur, diastolic murmur, rubs, gallop, clicks GI/Abdominal exam: Present: soft, normal bowel sounds. Absent: distended, tenderness, guarding, rebound, rigid Neurological exam: Present: alert, oriented X3 Psychiatric exam: Present: normal affect, normal mood Skin exam: Present: warm, dry, intact, normal color. Absent: rash Course Vital Signs 06/23/24 06/23/24 06/23/24 21:08 22:26 23:29 Temperature 98.6 F Pulse Rate 92 58 L 56 L Respiratory 18 18 18 Rate Blood Pressure 113/81 107/71 107/67 O2 Sat by Pulse 99 100 100 Oximetry Medical Decision Making - Medical Decision Making I completed the quick note portion of this chart signed Kellen Rondon PA-C Was pt. sent in by a medical professional or institution ([facility], [employer], urgent care, hospital, or custodial...) When possible be specific @ -No Did you speak to anyone other than the patient for history (EMS, parent, family, police, friend...)? What history was obtained from this source @ -No Did you review nursing and triage notes (agree or disagree)? Why? @ -I reviewed and agree with nursing and triage notes Were old charts reviewed (outside hosp., previous admission, EMS record, old EKG, old radiological studies, urgent care reports/EKG's, custodial records)? Report findings @ -No old charts were reviewed Differential Diagnosis (chest pain, altered mental status, abdominal pain women, abdominal pain men, vaginal bleeding, weakness, fever, dyspnea, syncope, headache, dizziness, GI bleed, back pain, seizure, CVA, palpatations, mental health, musculoskeletal)? @ -Differential Vaginal Bleeding: Spontaneous , threatened , molar , ectopic , bloody show, incompetent cervix, abruptioplacenta, placenta previa, uterine rupture, dysfunctional uterine bleeding, hemorrhage, uterine fib roids, this is not meant to be an all-inclusive list. EKG interpreted by me (3pts min.). @ -None X-rays interpreted by me (1pt min.). @ -None done CT interpreted by me (1pt min.). @ -None done U/S interpreted by me (1pt. min.). @ -Pelvic ultrasound revealed no acute process, endometrium within normal limits, probable fibroids, appropriate blood flow to right ovary What testing was considered but not performed or refused? (CT, X-rays, U/S, labs)? Why? @ -None What meds were considered but not given or refused? Why? @ -None Did you discuss the management of the patient with other professionals (professionals i.e. , PA, [employer], lab, RT, psych nurse, social media community manager, plant taxonomy teacher, teacher, commanding officer homicide squad, immigration case manager)? Give summary @ -No Was smoking cessation discussed for >3mins.? @ -No Was critical care preformed (if so, how long)? @ -No Were there social determinants of health that impacted care today? How? (Homelessness, low income, unemployed, alcoholism, drug addiction, transportation, low edu. Level, literacy, decrease access to med. care, senior living, rehab)? @ -No Was there de-escalation of care discussed even if they declined (Discuss DNR or withdrawal of care, Hospice)? DNR status @ -No What co-morbidities impacted this encounter? (DM, HTN, Smoking, COPD, CAD, Cancer, CVA, ARF, Chemo, Hep., AIDS, mental health diagnosis, sleep apnea, morbid obesity)? @ -None Was patient admitted / discharged? Hospital course, mention meds given and route, prescriptions, significant lab abnormalities, going to OR and other pertinent info. @ - discharge. 43-year-old female presenting for lower abdominal pain x 2 days with associated vaginal bleeding. Vital signs within acceptable limits. Abdome n soft and nonsurgical. Patient is provided with IV fluids and Toradol for supportive care. Lab work largely unremarkable. White blood cell count 6, hemoglobin 13, lactic acid 0.7. Urinalysis remarkable for trace blood otherwise unremarkable. Pelvic ultrasound revealed no acute process, endometrium within normal limits, probable fibroids. Discussed results with patient. Upon reevaluation, patient is requesting an additional dose of pain medication. Discussed diagnosis of uterine fibroids. Appropriate return precautions and follow-up care with [facility] discussed. Supportive care discussed. Case was discussed with my ED attending Dr. Dawson. Undiagnosed new problem with uncertain prognosis? @ -No Drug Therapy requiring intensive monitoring for toxicity (Heparin, Nitro, Insulin, Cardizem)? @ -No Were any procedures done? @ -No Diagnosis/symptom? @ -Uterine fibroids, dysmenorrhea Acute, or Chronic, or Acute on Chronic? @ -Acute Uncomplicated (without systemic symptoms) or Complicated (systemic symptoms)? @ -Uncomplicated Side effects of treatment? @ -No Exacerbation, Progression, or Severe Exacerbation? @ -No Poses a threat to life or bodily function? How? (Chest pain, USA, MS, pneumonia, PE, COPD, DKA, ARF, appy, cholecystitis, CVA, Diverticulitis, Homicidal, Suicidal, threat to staff... and all critical care pts) @ -Not at this time - Lab Data Result diagrams: 06/23/24 21:45 06/23/24 21:45 Lab Results 06/23/24 06/23/24 06/23/24 Range/Units 21:45 21:45 21:55 WBC 6.3 (3.8-10.6) k/uL RBC 4.56 (3.80-5.40) m/uL Hgb 13.7 (11.4-16.0) gm/dL Hct 42.3 (34.0-46.0) % MCV 92.7 (80.0-100.0) fL MCH 30.0 (25.0-35.0) pg MCHC 32.4 (31.0-37.0) g/dL RDW 13.0 (11.5-15.5) % Plt Count 241 (150-450) k/uL MPV 7.3 Neutrophils % 55 % Lymphocytes % 29 % Monocytes % 7 % Eosinophils % 6 % Basophils % 1 % Neutrophils # 3.5 (1.3-7.7) k/uL Lymphocytes # 1.8 (1.0-4.8) k/uL Monocytes # 0.5 (0-1.0) k/uL Eosinophils # 0.4 (0-0.7) k/uL Basophils # 0.0 (0-0.2) k/uL Sodium 135 L (137-145) mmol/L Potassium 4.2 (3.5-5.1) mmol/L Chloride 103 (98-107) mmol/L Carbon Dioxide 22 (22-30) mmol/L Anion Gap 10 mmol/L BUN 16 (7-17) mg/dL Creatinine 0.70 (0.52-1.04) mg/dL Est GFR (CKD-EPI)AfAm >90 (>60 ml/min/1.73 sqM) Est GFR (CKD-EPI)NonAf >90 (>60 ml/min/1.73 sqM) Glucose 97 (74-99) mg/dL Plasma Lactic Acid Jerry (0.7-2.0) mmol/L Calcium 9.1 (8.4-10.2) mg/dL Total Bilirubin 0.4 (0.2-1.3) mg/dL AST 18 (14-36) U/L ALT 10 (4-34) U/L Alkaline Phosphatase 66 (38-126) U/L Total Protein 7.2 (6.3-8.2) g/dL Albumin 4.5 (3.5-5.0) g/dL Urine Color Yellow Urine Appearance Clear (Clear) Urine pH 6.0 (5.0-8.0) Ur Specific [place] 1.026 (1.001-1.035) Urine Protein Negative (Negative) Urine Glucose (UA) Negative (Negative) Urine Ketones Negative (Negative) Urine Blood Trace H (Negative) Urine Nitrite Negative (Negative) Urine Bilirubin Negative (Negative) Urine Urobilinogen <2.0 (<2.0) mg/dL Ur Leukocyte Esterase Negative (Negative) Urine RBC 1 (0-5) /hpf Urine WBC 2 (0-5) /hpf Ur Squamous Epith Cells 1 (0-4) /hpf Urine Mucus Occasional H (None) /hpf Urine HCG, Qual (Not Detectd) 06/23/24 06/23/24 Range/Units 21:55 22:11 WBC (3.8-10.6) k/uL RBC (3.80-5.40) m/uL Hgb (11.4-16.0) gm/dL Hct (34.0-46.0) % MCV (80.0-100.0) fL MCH (25.0-35.0) pg MCHC (31.0-37.0) g/dL RDW (11.5-15.5) % Plt Count (150-450) k/uL MPV Neutrophils % % Lymphocytes % % Monocytes % % Eosinophils % % Basophils % % Neutrophils # (1.3-7.7) k/uL Lymphocytes # (1.0-4.8) k/uL Monocytes # (0-1.0) k/uL Eosinophils # (0-0.7) k/uL Basophils # (0-0.2) k/uL Sodium (137-145) mmol/L Potassium (3.5-5.1) mmol/L Chloride (98-107) mmol/L Carbon Dioxide (22-30) mmol/L Anion Gap mmol/L BUN (7-17) mg/dL Creatinine (0.52-1.04) mg/dL Est GFR (CKD-EPI)AfAm (>60 ml/min/1.73 sqM) Est GFR (CKD-EPI)NonAf (>60 ml/min/1.73 sqM) Glucose (74-99) mg/dL Plasma Lactic Acid Jerry 0.7 (0.7-2.0) mmol/L Calcium (8.4-10.2) mg/dL Total Bilirubin (0.2-1.3) mg/dL AST (14-36) U/L ALT (4-34) U/L Alkaline Phosphatase (38-126) U/L Total Protein (6.3-8.2) g/dL Albumin (3.5-5.0) g/dL Urine Color Urine Appearance (Clear) Urine pH (5.0-8.0) Ur Specific [place] (1.001-1.035) Urine Protein (Negative) Urine Glucose (UA) (Negative) Urine Ketones (Negative) Urine Blood (Negative) Urine Nitrite (Negative) Urine Bilirubin (Negative) Urine Urobilinogen (<2.0) mg/dL Ur Leukocyte Esterase (Negative) Urine RBC (0-5) /hpf Urine WBC (0-5) /hpf Ur Squamous Epith Cells (0-4) /hpf Urine Mucus (None) /hpf Urine HCG, Qual Not Detected (Not Detectd) Disposition Clinical Impression: Uterine fibroid, Dysmenorrhea Disposition: HOME SELF-CARE Condition: Stable Instructions (If sedation given, give patient instructions): Dysmenorrhea (ED) Additional Instructions: Follow-up with your OB as discussed. Please return to the Emergency Department if symptoms worsen or any other concerns. Is patient prescribed a controlled substance at d/c from ED?: No Referrals: None,Stated [Primary Care Provider] - 1-2 days Time of Disposition: 23:33
[2024-06-23 21:14] VITALS: RESP 18; TEMP 98.6
[2024-06-23 21:51] LABS: Basophils % (A) 1 %; Eosinophils # (A) 0.4 k/uL (0-0.7); Eosinophils % (A) 6 %; HCT 42.3 % (34.0-46.0); HGB 13.7 gm/dL (11.4-16.0); Lymphocytes # (A) 1.8 k/uL (1.0-4.8); Lymphocytes % (A) 29 %; MCHC 32.4 g/dL (31.0-37.0); MCV 92.7 fL (80.0-100.0); Mean Platelet Volume 7.3; Monocytes # (A) 0.5 k/uL (0-1.0); Monocytes % (A) 7 %; Neutrophils # (A) 3.5 k/uL (1.3-7.7); Neutrophils % (A) 55 %; Platelet Count 241 k/uL (150-450); RBC 4.56 m/uL (3.80-5.40); WBC 6.3 k/uL (3.8-10.6)
[2024-06-23 22:01] LABS: ALT 10 U/L (4-34); AST 18 U/L (14-36); African American GFR (CKD) >90 (>60 ml/min/1.73 sqM); Albumin 4.5 g/dL (3.5-5.0); Alkaline Phosphatase 66 U/L (38-126); Anion Gap 10 mmol/L; Blood Urea Nitrogen 16 mg/dL (7-17); Calcium 9.1 mg/dL (8.4-10.2); Carbon Dioxide 22 mmol/L (22-30); Chloride 103 mmol/L (98-107); Glucose 97 mg/dL (74-99); Non-African American GFR(CKD) >90 (>60 ml/min/1.73 sqM); Potassium 4.2 mmol/L (3.5-5.1); Sodium 135 mmol/L (137-145); Total Bilirubin 0.4 mg/dL (0.2-1.3); Total Protein 7.2 g/dL (6.3-8.2)
[2024-06-23 22:12] LABS: Appearance,Urine Clear (Clear); Bilirubin,Urine Negative (Negative); Blood,Urine Trace (Negative); Color,Urine Yellow; Glucose,Urine (UA) Negative (Negative); Ketones,Urine Negative (Negative); Leukocyte Esterase,Urine Negative (Negative); Mucus,Urine Occasional /hpf; Nitrite,Urine Negative (Negative); Protein,Urine Negative (Negative); RBC,Urine 1 /hpf (0-5); Specific Gravity,Urine 1.026 (1.001-1.035); Squamous Epithelial Cell,Urine 1 /hpf (0-4); Urobilinogen,Urine <2.0 mg/dL (<2.0); WBC,Urine 2 /hpf (0-5)
[2024-06-23] MEDS: SODIUM CHLORIDE 0.9% 1,000 ML IV STA (22:19)
[2024-06-23] MEDS: KETOROLAC 15 MG/ML 1 ML VIAL IVP STA (22:19)
--- NOTE | 2024-06-23 23:12 | US ---
EXAMINATION TYPE: US transvaginal DATE OF EXAM: 06/23/2024 COMPARISON: US 2020 CLINICAL INDICATION: Female, 43 years old with history of lower abd pain; patient states hasnt had a cycle since january 2021. patient experiencing lower abd pain lately and now today heavy bleeding. P atient had left oophorectomy TECHNIQUE: Transvaginal (TV). Transvaginal sonographic images were medically necessary to better assess the following anatomy: Endo metrium Doppler imaging: Color Doppler Images were obtained. Spectral doppler images were obtained. FINDINGS: Date of LMP: January 2021 EXAM MEASUREMENTS: Uterus: 7.1 x 4.1 x 5.1 cm Endometrial Stripe: 0.4 cm Right Ovary: 3.0 x 2.8 x 1.9 cm Left Ovary: Surgically absent cm 1. Uterus: Anteverted Multiple anechoic areas seen within the cervix, largest measuring 0.8 x 0.9 x 0.8cm. There is also a 1.2 x 1.4 x 1.2cm complex area seen within the uterine fundus on the left si de. 2. Endometrium: visualized portion appears wnl 3. Right Ovary: wnl 4. Left Ovary: Surgically absent Spectral, color and waveform doppler imaging shows good arterial and venous flow within the right o vary; there is no evidence for ovarian torsion within the right ovary. 5. Bilateral Adnexa: wnl 6. Posterior cul-de-sac: wnl IMPRESSION: 1. No evidence for acute process. 2. Endometrium within normal limits. 3. Probable fibroids. 4. Appropriate arterial and venous spectral waveforms to the right ovary. The left ovary was not mac luated with spectral imaging [facility], , 06/23/2024 11:10 PM
[2024-06-23] MEDS: MORPHINE SULFATE 2 MG/ML SYRINGE IVP ONE (23:31)
[2024-06-23 23:32] VITALS: BP 107/67; PULSE 56
== END 2024-06-23 23:48 | disposition home or self-care (01) ==
LOC: EC 19:21
DX: D25.9 Leiomyoma of uterus, unspecified (principal); N94.6 Dysmenorrhea, unspecified; F17.200 Nicotine dependence, unspecified, uncomplicated; Z88.2 Allergy status to sulfonamides; Z91.018 Allergy to other foods; Z88.1 Allergy status to other antibiotic agents; Z88.7 Allergy status to serum and vaccine; Z88.8 Allergy status to other drugs, medicaments and biological substances; Z88.0 Allergy status to penicillin
CPT/HCPCS: 36415; 80053; 83605; 85025; 81001; 81025; 93976; 76830; 99284; 96374; 96375; 96361; J2270; J1885; 93975